=== PATIENT | male | born 1990 | race Caucasian/White ===

== ENCOUNTER → 2022-06-21 10:50 | Outpatient (BNVA) | payer OTHER, SELFPAY | PROVIDERS: PCP Nurse Practitioner Family; Visit Provider Internal Medicine Endocrinology, Diabetes & Metabolism | DX: E10.9 Type 1 diabetes mellitus without complications (principal); Z79.4 Long term (current) use of insulin | CPT/HCPCS: 82947 ==

== ENCOUNTER 2022-07-07 07:59 | Outpatient (REF) | payer OTHER, SELFPAY ==
[2022-07-07 11:41] LABS: Hematocrit 43.4 % (42.0-52.0); Hemoglobin 14.6 g/dl (14.0-18.0); Mean Corpuscular HGB Conc 33.6 g/dl (31.0-36.0); Mean Corpuscular Volume 89.1 fL (80.0-98.0); Mean Platelet Volume 10.2 fL (9.4-12.4); Platelet Count 322 X10*3/uL (160-400); Red Blood Count 4.87 X10*6/uL (4.60-5.80); White Blood Count 7.5 X10*3/uL (4.8-10.8)
[2022-07-07 11:56] LABS: Alanine Aminotransferase 17 U/L (0-40); Albumin Level 4.2 g/dL (3.5-5.0); Alkaline Phosphatase 46 U/L (39-117); Anion Gap 10 (12-20); Aspartate Amino Transferase 18 U/L (5-37); Bilirubin Total 0.7 mg/dL (0.0-1.0); Blood Urea Nitrogen 14 mg/dL (9-16); Carbon Dioxide 29 mmol/L (22-29); Chloride 105 mmol/L (96-108); Cholesterol 164 mg/dL; Estimated Glomerular Filt Rate > 60; Glucose Fasting 121 mg/dL (60-99); Glucose Random 121 mg/dL (60-115); HDL Cholesterol 43 mg/dL; LDL Cholesterol Calculated 112 mg/dl; Potassium 4.1 mmol/L (3.3-5.1); Sodium 140 mmol/L (135-145); Total Protein 6.9 g/dL (6.5-8.0); Triglycerides 45 mg/dL
[2022-07-07 12:13] LABS: TSH reflex Free T4 2.26 uIU/mL (0.32-4.0)
[2022-07-07 12:55] LABS: Microalbum/Creatinine Ratio Ur 5.8 ug/mg cr
== END 2022-07-07 08:00 | disposition home or self-care (01) ==
LOC: HO.WFDLDS 07:59
PROVIDERS: Internal Medicine Endocrinology, Diabetes & Metabolism; Visit Provider Nurse Practitioner Family
DX: Z00.00 Encounter for general adult medical examination without abnormal findings (principal); E10.9 Type 1 diabetes mellitus without complications
CPT/HCPCS: 36415; 80048; 80053; 80061; 82043; 84443; 85027

== ENCOUNTER → 2022-09-20 12:25 | Outpatient (BNVA) | payer OTHER, SELFPAY | PROVIDERS: PCP Nurse Practitioner Family; Visit Provider Internal Medicine Endocrinology, Diabetes & Metabolism | DX: E10.319 Type 1 diabetes mellitus with unspecified diabetic retinopathy without macular edema (principal); Z79.4 Long term (current) use of insulin | CPT/HCPCS: 82947; 83036 ==

== ENCOUNTER → 2022-11-01 07:54 | Outpatient (BNVA) | payer OTHER, SELFPAY | PROVIDERS: PCP Nurse Practitioner Family; Visit Provider Registered Nurse Diabetes Educator ==

== ENCOUNTER → 2022-12-06 08:34 | Outpatient (BNVA) | payer OTHER, SELFPAY | PROVIDERS: PCP Nurse Practitioner Family; Visit Provider Registered Nurse Diabetes Educator ==

== ENCOUNTER 2023-01-10 08:05 | Outpatient (AMB) | payer OTHER, SELFPAY ==
[2023-01-10 08:08] VITALS: BP 126/80; PULSE 83
--- NOTE | 2023-01-10 08:08 | MHC.OFFVIS ---
Intake Vital Signs 01/10/23 08:08 Height 61 ft Weight 180 lb 8.937 oz BMI 0.2 BP 126/80 Blood Pressure Location Lt brachial Position Sitting Pulse 83 Pulse Source Pulse Oximeter Intake Visit Reasons: DM Intake Note: Patient present today to follow up on Type 1 Diabetes Mellitus. Patient receives DME supplies through: Pharmacy Last Diabetic Eye exam: 11/2022 Last Podiatry Visit: Does not see Drain Technician Random Glucose: 173 mg/dl HgA1C: 7.8% Brand Sales Consultant Required: No Accompanied by: Self / Same As Patient Allergies amoxicillin Allergy (Mild, Verified 01/10/23 08:13) Hives penicillin V Allergy (Mild, Verified 01/10/23 08:13) Hives Medication List - Last Reconciled 01/10/23 by Dereje Martinez MD blood-glucose sensor (Dexcom G7 Sensor device) As directed change every 10 days insulin glargine (Basaglar KwikPen U-100 Insulin) 36 units subcut QPM insulin lispro (Humalog KwikPen (U-100) Insulin) 1 sliding scale dose subcut USEASDIRECTD HPI HPI Comments History of Present Illness Details 32 YO M with is seen in consultation for T1DM at the request of PCP. Initially diagnosed with T1DM in age 14 when presented with 2 wks of polyuria and polydypsia .Saw Dr. Shaffer and Dr. Carolina Was initially started on treatment with Current regimen: Basaglar 36 units Humalog 1:10 Currently on a Dexcom. Was on pump Medtronic for 2 yrs Dexcom shows Avg glucose is 202 with SD of 75 and GMI of 8.1 . The patient's blood sugars were in target 40% of the time, above target 58 % of the time, and below target 2% of the time. Pattern shows post-dinner elevations and post-breakfast hypoglycemia Reports low sugars 3-5 X wk . Treats lows with eating fruit snacks . Checks sugar after to ensure it is rising. Does not check again No Family history of autoimmunity Has eyes checked yearly, last eye exam 1 mo ago , has retinopathy. [Denies] neuropathy, last foot exam Not , sees podiatry. Denies nephropathy, Not on SASHA/ARB. Not Has HLD, Not on statin. Denies history of CAD. [Had] diabetes education. Diet/Carb counting: Y Denies prior episodes of DKA. Denies prior severe episodes of hypoglycemia requiring help or hospitalization. Labs: [facility] Surgical History History of surgery on arm Family History Mother Migraine headache Father Acute alcohol abuse Social History Housing: House Alcohol intake: current Alcohol intake frequency: a few times a week Patient Tobacco Use Status: Never used Tobacco e-Cigarette/Vaping Use: Never Used Current occupational status: employed Current occupation: [employer] Cognitive needs: No Hearing needs: No Vision needs: No Physical Exam Vital Signs: Last Vital Signs Pulse 83 01/10/23 08:08 BP 126/80 01/10/23 08:08 BMI result Body Mass Index 0.2 Absence of Cushingoid features. Absence of acromegalic features. Neck exam reveals nl size thyroid about 15 gms. No thyroid nodules palpable. No carotid bruits present. Lungs CTA. Heart S1 S2, Reg R/R. No M/R/ G. Skin exam reveals absence of vitiligo or acanthosis nigricans. Abdominal exam reveals Soft NT/ND with NA BS. No organomegaly present. Extrem Other: Visual exam of foot performed. No ulcerations or open lesions. No onchomycosis, no callouses.Pulses 2 + distally. Sensation intact to monofilament exam. Vibratory sensation sensed 10 seconds in right, 10 seconds in left with 128 Hz tuning fork Results AMB Hemoglobin A1c AMB Hemoglobin A1c 7.8 % Last Edit by Holli Betancur on 01/10/23 08:30 Results Reviewed Results Reviewed: 01/10/23 08:20 Glucose, Whole Blood Routine Laboratory Last Values Glucose (Clinic) 173 mg/dL (60-115) H 01/10/23 08:20 Assessment & Plan Assessment & Plan (1) Type 1 diabetes mellitus: Code(s): E10.9 - Type 1 diabetes mellitus without complications Plan: This is a 31-year-old white male with a history of type 1 diabetes being treated with basal-bolus insulin with glycemic control and no known microvascular or macrovascular complications. Plan is to increase Carbohydrate to 1:8 before dinner and decrease to 1:11 before breakfast Will also talk about using insulin pump like tandem or Omnipod patient is interested. Also went over the correlation between poor glycemic control and development and progression of complication. Orders: Orders AMB Hemoglobin A1c Today E10.9 - Type 1 diabetes mellitus without complications Coding Level of Care Code Est Pt Level 4 (49984) Diagnoses Type 1 diabetes mellitus E10.9
[2023-01-10 08:24] LABS: Glucose, Whole Blood 173 mg/dL (60-115)
== END 2023-01-10 08:47 | disposition home or self-care (01) ==
PROVIDERS: PCP Nurse Practitioner Family; Referring Provider Nurse Practitioner Family; Visit Provider Internal Medicine Endocrinology, Diabetes & Metabolism
DX: E10.9 Type 1 diabetes mellitus without complications (principal)
CPT/HCPCS: 99214

== ENCOUNTER → 2023-01-10 08:05 | Outpatient (BNVA) | payer OTHER, SELFPAY | PROVIDERS: Visit Provider Internal Medicine Endocrinology, Diabetes & Metabolism | DX: E10.9 Type 1 diabetes mellitus without complications (principal) | CPT/HCPCS: 82947; 83036 ==

== ENCOUNTER 2023-01-24 09:01 | Outpatient (AMB) | payer OTHER, SELFPAY ==
--- NOTE | 2023-01-24 09:37 | A.OFFVIS_ITS ---
Intake Intake Visit Reasons: Pump discussion, voicemail Project Estimator Required: No Accompanied by: Self / Same As Patient Allergies amoxicillin Allergy (Mild, Verified 01/10/23 08:13) Hives penicillin V Allergy (Mild, Verified 01/10/23 08:13) Hives HPI Comprehensive Diabetes Asmnt Most Recent Diabetes Results: Microalb/Creat Ratio 5.8 ug/mg cr 07/07/22 Cholesterol 164 mg/dL 07/07/22 HDL Cholesterol 43 mg/dL 07/07/22 Triglycerides 45 mg/dL 07/07/22 Creatinine 0.78 mg/dL (0.5-1.4) 07/07/22 Blood Urea Nitrogen 14 mg/dL (9-16) 07/07/22 Sodium 140 mmol/L (135-145) 07/07/22 Potassium 4.1 mmol/L (3.3-5.1) 07/07/22 Chloride 105 mmol/L (96-108) 07/07/22 Carbon Dioxide 29 mmol/L (22-29) 07/07/22 Calcium 9.0 mg/dL (8.4-10.2) 07/07/22 AST 18 U/L (5-37) 07/07/22 ALT 17 U/L (0-40) 07/07/22 Total Protein 6.9 g/dL (6.5-8.0) 07/07/22 Albumin 4.2 g/dL (3.5-5.0) 07/07/22 PFSH Surgical History History of surgery on arm Family History Mother Migraine headache Father Acute alcohol abuse Social History Housing: House Alcohol intake: current Alcohol intake frequency: a few times a week Patient Tobacco Use Status: Never used Tobacco e-Cigarette/Vaping Use: Never Used Current occupational status: employed 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 Cognitive needs: No Hearing needs: No Vision needs: No Assessment & Plan Assessment & Plan (1) Type 1 diabetes mellitus: Code(s): E10.9 - Type 1 diabetes mellitus without complications Plan: Pump Assessment: Type of DM: type 1 Dx at age: 14 y.o. Previous DKA: no Current Insulin Rx: MDI Patient takes insulin as prescribed: yes Patient? checks BG with Dexcom g7 Downloaded meter today yes Patient? reports glycemic control as: fair Most recent Hgb A1C: 7.8% Frequency of low BG: every few days Frequency of high BG: daily Has pt been on a pump in the past? yes Medtronic Reviewed insulin pump basics today with Patient. Explained pros and cons of insulin pumps. Showed pt various pumps, infusion sets, and cgms currently available. Reviewed need to wear pump 24/ and need to change infusion set every 3 days. Also stressed importance of frequent BG checks, 4x daily minimum or use pump that is integrated with CGM.? Patient demonstrated motivation for continued insulin pump education and understands the need to complete education prior to starting insulin pump for best outcome. Patient consistently uses insulin to carb ratio and correction factor to determine bolus insulin Explained to patient at this time integrated pumps are only integrated with Dexcom G6 Patient is interested in Omnipod 5, however had negative reaction to Dexcom G6 adhesive. So he is not sure he wants to pursue pump therapy at this time. Patient given list of barrier creams that he can experiment with with Dexcom G6 sensor to see this helps with sensitivity. Patient is also having hyperglycemia overnight due to his concern of hypoglycemia if he goes to bed with his glucose under 200 mg/dL. Recommended to patient at this time to reduce his Lantus dose to 28 units. If he wakes up approximately in the same range then we can visit revisit insulin to carb ratio and correction factor for correcting hyperglycemia during the day Patient will follow-up with natural resources extension educator in 1 month Patient Instructions: Reduce Lantus from 36 units to 28 units. Follow-up with natural resources extension educator in 1 month Coding Level of Care Code Est Pt Level 1 (09348) Diagnoses Type 1 diabetes mellitus E10.9
== END 2023-01-24 09:39 | disposition home or self-care (01) ==
PROVIDERS: PCP Nurse Practitioner Family; Visit Provider Registered Nurse Diabetes Educator
DX: E10.9 Type 1 diabetes mellitus without complications (principal)

== ENCOUNTER → 2023-01-24 09:01 | Outpatient (BNVA) | payer OTHER, SELFPAY | PROVIDERS: PCP Nurse Practitioner Family; Visit Provider Registered Nurse Diabetes Educator | DX: E10.9 Type 1 diabetes mellitus without complications (principal) | CPT/HCPCS: 99211 ==

== ENCOUNTER 2023-06-27 11:50 | Outpatient (AMB) | payer OTHER, SELFPAY ==
[2023-06-27 11:58] VITALS: BP 120/76; PULSE 85; RESP 14; TEMP 36.6; O2SAT 99; BMI 24.2
--- NOTE | 2023-06-27 11:58 | MHC.OFFWIV ---
Intake Vital Signs 06/27/23 11:58 Height 6 ft 1 in Weight 183 lb 8 oz BMI 24.2 BP 120/76 Blood Pressure Location Rt brachial Position Sitting Respiration 14 Pulse 85 Pulse Source Pulse Oximeter Temp 97.9 F Temp Source Temporal Artery Scan Pulse Oximetry (%) 99 Oxygen Delivery Method Room Air Intake Visit Reasons: Shoulder pain Intake Note: Patient states that whenever he pulls arm back to like put on a coat it feels like pressure and like someone is squeezing his shoulder really tight. Patient has missed work due to him not being able to sleep. 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 Required: No Accompanied by: Self / Same As Patient Allergies amoxicillin Allergy (Mild, Verified 06/27/23 12:59) Hives penicillin V Allergy (Mild, Verified 06/27/23 12:59) Hives Medication List - Last Reconciled 06/27/23 by KEV GeronimoP- blood-glucose sensor (Dexcom G7 Sensor device) DIRECTED CHANGE EVERY 10 DAYS insulin glargine (Basaglar KwikPen U-100 Insulin) 36 units subcut QPM insulin lispro (Humalog KwikPen (U-100) Insulin) 1 unit for every 10 grams of carbohydrates subcutaneously 3 times a d subcutaneously 3 times a day; Do you need a note to return to daycare/school/sports/work: Yes Return to daycare/school/sports/work/other note: work HPI HPI Comments History of Present Illness Details Here today with complaints of right shoulder pain that started about 1 month ago. Reports he does not have any overt trauma or injury to the shoulder. He does have uncontrolled diabetes type 1. Reports his last A1c is greater than 9%. He correlates the pain in his right shoulder with playing his guitar. 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 About a month ago he started playing again. It was after this time that he noticed the pain located in the front of the right shoulder as well as the posterior right shoulder. He figured it would go away with time. However it has not. To treat at home he has been doing home exercises which he notes has been helpful. Denies any history of surgery or imaging to this joint in the past Of note he needs a new endocrinology referral requested referral to [facility]. He also needs [facility] paperwork to be completed for his intermittent absence related to his chronic condition of diabetes. [facility] Surgical History History of surgery on arm Family History Mother Migraine headache Father Acute alcohol abuse Social History Housing: House Alcohol intake: current Alcohol intake frequency: a few times a week Patient Tobacco Use Status: Never used Tobacco e-Cigarette/Vaping Use: Never Used Current occupational status: employed Current occupation: [employer] Cognitive needs: No Hearing needs: No Vision needs: No Physical Exam Vital Signs: Last Vital Signs Temp 97.9 F 06/27/23 11:58 Pulse 85 06/27/23 11:58 Resp 14 06/27/23 11:58 BP 120/76 06/27/23 11:58 Pulse Ox 99 06/27/23 11:58 Oxygen Delivery Method Room Air 06/27/23 11:58 BMI result Body Mass Index 24.2 Extrem Right upper extremity: normal to inspection, normal capillary refill, no joint enlargement and shoulder/upper arm Details: tenderness, axillary nerve sensory function normal and abnormal ROM Details: pain with active ROM Details: in ADduction, in ABduction, in extension, in flexion, in internal rotation and external rotation- Shoulder/upper arm images: 1. pain w palpation 2. 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 Prescription for meloxicam to be used as needed to help with his pain and discomfort. If this is not effective consider an orthopedic referral. (2) Type 1 diabetes mellitus: Code(s): E10.9 - Type 1 diabetes mellitus without complications Plan: Per his request new referral to endocrinology at we did consult placed today. I did advise him to make a follow-up in about a week or so to complete the [facility] paperwork with his primary care provider. Plan This note is constructed using voice recognition software. While every effort has been made to ensure accuracy in supervisor packing, still errors may have been included Sometimes, these errors may affect the content or meaning of the given sentence . Total time spent caring for the patient today was 30 minutes. This includes time spent before the visit reviewing the chart, time spent during the visit, and time spent after the visit on documentation Orders: Orders PT Evaluation and Treatment Today E10.618 - Type 1 diabetes mellitus with other diabetic arthropathy, M75.01 - Adhesive capsulitis of right shoulder Referrals Endocrinology Referral E10.9 - Type 1 diabetes mellitus without complications Medications: New meloxicam 7.5 mg PO DAILY 14 tabs 0RF Coding Level of Care Code Est Pt Level 4 (50039) Diagnoses Adhesive capsulitis of right shoulder associated with type 1 diabetes mellitus E10.618; M75.01 Type 1 diabetes mellitus E10.9
== END 2023-06-27 13:20 | disposition home or self-care (01) ==
PROVIDERS: PCP Nurse Practitioner Family; Visit Provider Nurse Practitioner Family
DX: E10.618 Type 1 diabetes mellitus with other diabetic arthropathy (principal); M75.01 Adhesive capsulitis of right shoulder; E10.9 Type 1 diabetes mellitus without complications
CPT/HCPCS: 99214

== ENCOUNTER 2023-07-11 10:26 | Outpatient (AMB) | payer OTHER, SELFPAY ==
[2023-07-11 10:42] VITALS: BP 120/74; PULSE 102; RESP 13; TEMP 36.6; O2SAT 99; BMI 24.3
--- NOTE | 2023-07-11 10:42 | A.OFFPC_ITS ---
Vital Signs 07/11/23 10:42 Height 6 ft 1 in Weight 184 lb 4 oz BMI 24.3 BP 120/74 Blood Pressure Location Rt brachial Position Sitting Respiration 13 Pulse 102 H Pulse Source Pulse Oximeter Temp 98 F Temp Source Temporal Artery Scan Pulse Oximetry (%) 99 Oxygen Delivery Method Room Air Intake Visit Reasons: [facility] paperwork SHANAE from [facility] [employer] Required: No Accompanied by: Self / Same As Patient Allergies amoxicillin Allergy (Mild, Verified 07/11/23 10:46) Hives penicillin V Allergy (Mild, Verified 07/11/23 10:46) Hives Tobacco use date assessed: 07/11/23 Dental Screening Dental Screen Date: 07/11/23 Did you have a dental visit in the last 12 months?: Yes Did you have a dental problem in the last 6 months where you did not have access to dental care?: No Was dental information given to patient?: Patient has dentist HPI HPI Comments History of Present Illness Details 32 y/o M with IDDM with complications, m ild nonproliferative diabetic retinopathy, MDD,[facility] 04/2021, reports he has annual visits. Asked him to get me these reports. 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 blood sugar log reviewed with him today. The 30 day average is 202 mg/dL. 42% in range, less than 1% low, 2% very high, 35% high. He reports he has more highs in the evening and overnight. He is currently taking his Basaglar 36 units at bedtime. And using preprandial insulin and insulin sliding scale. Admits that his diet is part of the problem. It is interested in a diabetic nut ritionist. Referral is placed today. [facility] Medical History No pertinent past medical history Surgical History History of surgery on arm Family History Mother Migraine headache Father Acute alcohol abuse Other Mental health disorder Substance abuse Social History Housing: House Alcohol intake: current Alcohol intake frequency: a few times a week Patient Tobacco Use Status: Never used Tobacco e-Cigarette/Vaping Use: Never Used service: No Current occupational status: employed Current occupation: [employer] Cognitive needs: Yes Hearing needs: No Vision needs: No Questionnaire PHQ-9 Over the last 2 weeks, how often have you been bothered by any of the following problems? 1. Little interest or pleasure in doing things: several days 2. Feeling down, depressed, or hopeless: several days 3. Trouble falling or staying asleep, or sleeping too much: nearly every day 4. Feeling tired or having little energy: more than half the days 5. Poor appetite or overeating: not at all 6. Feeling bad about yourself - or that you are a failure or have let yourself or your family down: not at all 7. Trouble concentrating on things, such as reading the newspaper or watching television: several days 8. Moving or speaking so slowly that other people could have noticed. Or the opposite - being so fidgety or restless that you have been moving around a lot more than usual: more than half the days 9. Thoughts that you would be better off or of hurting yourself in some wa y: not at all Total score: 10 Depression Screening Interpretation: Positive Depression Screening Follow-up: Follow-up Visit Requested Depression Screening Done: Yes 46603 - PHQ-9 Billing: Yes Source: Developed by Drs. Dereje Carolina, Clarice Weber, Maicol To and colleagues, with an educational karolyn from [employer]. Thrive Questionnaire Date Thrive assessed: 07/11/23 I am a: Patient What is your living situation today?: I have a steady place to live Within the past 12 months, did the food you bought not last and you didn't have the money to get more?: Never true Within the past 12 months, did you worry whether your food would run out before you got money to buy more?: Never true Do you have trouble paying for medicines?: No Do you have trouble getting transportation to medical appointments?: No Do you have trouble paying your heating and electricity bill?: No Do you have trouble taking care of your child, family member or friend?: No Do you have trouble with day-to-day activities such as bathing, preparing meals, shopping, managing finances, etc.?: No Are you currently unemployed and looking for a job?: No Are you interested in more education?: Yes Please select the resources that you would like help with: Education Currently or been in a relationship where the following occur: no concerns reported THRIVE Score: 0 AUDIT C Alcohol Use Questionnaire (AUDIT-C) 1. How often do you have a drink containing alcohol?: 2-3 times a week 2. How many drinks containing alcohol do you have on a typical day when you are drinking?: 1 or 2 3. How often do you have six or more drinks on one occasion?: Never Total Score: 3 OLIVER-7 AMB Questionnaire OLIVER-7 Date OLIVER - 7 assessed: 07/11/23 Feeling nervous, anxious, or on edge: 1 = Several days Not being able to stop or control worryin = Several days Worrying too much about different things: 1 = Several days Trouble relaxin = Nearly every day Being so restless that it is hard to sit still: 3 = Nearly every day Becoming easily annoyed or irritable: 2 = More than half the days Feeling afraid as if something awful might happen: 0 = Not at all Total OLIVER-7 score (0-4 normal; 5-9 mild; 10-14 moderate; 15-21 severe): 11 Source: Developed by Drs. Dereje Carolina, Clarice Weber, Maicol To and colleagues, with an educational karolyn from [employer]. OLIVER-7 Assessment Billing OLIVER-7 Assessment Tool: OLIVER-7 Assessment 56274 Review of Systems Const All systems reviewed & are unremarkable except as noted in HPI and below Physical exam (Primary Care) Vital Signs: Last Vital Signs Temp 98 F 07/11/23 10:42 Pulse 102 H 07/11/23 10:42 Resp 13 07/11/23 10:42 BP 120/74 07/11/23 10:42 Pulse Ox 99 07/11/23 10:42 Oxygen Delivery Method Room Air 07/11/23 10:42 BMI result Body Mass Index 24.3 Tobacco/Smoking Status: Tobacco use Status Tobacco use date assessed 07/11/23 07/11/23 10:52 Patient Tobacco Use Status Never used Tobacco 07/11/23 10:52 e-Cigarette/Vaping Use Never Used 07/11/23 10:52 PHQ-9: PHQ-9 Score PHQ-9: Total score 10 07/11/23 10:57 Depression Screening Interpretation: Positive Depression Screening Follow-up: Follow-up Visit Requested Thrive Assessment: Date of Thrive Assessment Date Thrive assessed 07/11/23 07/11/23 10:52 Currently or been in a relationship where the following occur: no concerns reported Const Other: AWAKE ALERT ORIENTED MUCOUS MEMBRANES MOIST SPEAKING IN FULL SENTENCES MOOD AND AFFECT APPROPRIATE Assessment and Plan Assessment & Plan (1) Type 1 diabetes mellitus: Comment: CURRENTLY USING INSULIN BASAGLAR 36 UNITS AT BEDTIME. ADVISED TO INCREASE THIS TO 40 UNITS DAILY. HE CAN TAKE THIS AT BEDTIME OR HE CAN SPLIT THIS 20 UNITS IN THE MORNING AND 20 UNITS AT BEDTIME THIS IS UP TO HIM. REPORTS THAT HE IS DONE THIS IN THE PAST AND IS UNSURE WHY HE STOPPED DOING THIS. HE SHOULD CONTINUE TO USE HIS CGM WELL HIS INSULIN LISPRO SLIDING SCALE. SCHEDULE AN APPOINTMENT WITH ENDOCRINOLOGY. DIABETIC ENTERTAINER & COMIC REFERRAL PLACED TODAY. ENCOURAGED TO STAY UP-TO-DATE ON EYE EXAMS AND GET ME THESE RECORDS. [facility] PAPERWORK COMPLETED FOR HIM TODAY AND RETURNED TO HIM AT THE TIME OF THE VISIT Code(s): E10.9 - Type 1 diabetes mellitus without complications Qualifiers: Diabetes mellitus complication status: with ophthalmic complications Diabetes mellitus complication detail: with diabetic retinopathy Diabetic retinopathy severity: with mild nonproliferative retinopathy Diabetes mellitus macular edema: without macular edema Laterality: bilateral Qualified Code(s): E10.3293 - Type 1 diabetes mellitus with mild nonproliferative diabetic retinopathy without macular edema, bilateral Plan THIS NOTE IS CONSTRUCTED USING VOICE RECOGNITION SOFTWARE. WHILE EVERY EFFORT HAS BEEN MADE TO ENSURE ACCURACY IN RADIOTELEGRAPH OPERATOR SERVICER, STILL ERRORS MAY HAVE BEEN INCLUDED SOMETIMES, THESE ERRORS MAY AFFECT THE CONTENT OR MEANING OF THE GIVEN SENTENCE . TOTAL TIME SPENT CARING FOR THE PATIENT TODAY WAS 45 MINUTES. 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 Baseball Coach Nutrition Referral E10.9 - Type 1 diabetes mellitus without complications Patient Instructions: RETURN TO THE OFFICE IN NOVEMBER TO RECERTIFY YOUR FAMILY MEDICAL LEAVE PAPERWORK WHICH EXPIRES IN DECEMBER 2023 SOONER NEEDED Coding Level of Care Code Est Pt Level 5 (25520) Diagnoses Type 1 diabetes mellitus with mild nonproliferative retinopathy of both eyes wit hout macular edema E10.3293 Diabetes mellitus complication status: with ophthalmic complications Diabetes mellitus complication detail: with diabetic retinopathy Diabetic retinopathy severity: with mild nonproliferative retinopathy Diabetes mellitus macular edema: without macular edema Laterality: bilateral Additional Codes OLIVER-7 Assessment Billing - OLIVER-7 Assessment Tool: OLIVER-7 Assessment 74162 ([id number])
== END 2023-07-11 11:34 | disposition home or self-care (01) ==
PROVIDERS: PCP Nurse Practitioner Family; Visit Provider Nurse Practitioner Family
DX: E10.3293 Type 1 diabetes mellitus with mild nonproliferative diabetic retinopathy without macular edema, bilateral (principal)
CPT/HCPCS: 99215

== ENCOUNTER 2023-09-04 10:25 | Outpatient (AMB) | payer OTHER, SELFPAY ==
[2023-09-04 10:29] VITALS: BMI 24.5
--- NOTE | 2023-09-04 10:29 | A.OFFVIS_ITS ---
Intake VS Expanded 09/04/23 10:29 09/06/23 09:52 Height 6 ft 1 in 6 ft 1 in Weight 185 lb 10.067 oz 186 lb BMI 24.5 24.5 Intake Visit Reasons: T1DM Allergies amoxicillin Allergy (Mild, Verified 07/11/23 10:46) Hives penicillin V Allergy (Mild, Verified 07/11/23 10:46) Hives HPI Nutrition Presentation Details Pt presents for MNT for T1DM. Pt was referred by Steph Sotomayor, PCP Pt reports having a variety of foods Pt reports counting carbs other times doing best estimation. Pt reports having elevated blood glucose after dinner and then developing hypoglycemia at midnight. He reports not yet making adjustments to background insulin as recommended by PCP (to take basaglar 20 units in AM and 20 units in PM) Pt reports having an baqsimi , needs new rx. Tel encounter sent to Dr. Martinez. Pt reports contemplating insulin pump therapy Today we will discuss relationship to food/carbs/fats and fiber to blood glucose level and consistency in carbohydrate counting AZI-Ogkmchm-Ta.Jeor Equation Height 6 ft 1 in Weight 186 lb Resting Metabolic Rate 1844.35 Calculated Activity Level Moderate Activity Calories Needed to Maintain Weight 2858.74 Most Recent Diabetes Results: No Data to Display [facility] Medical History No pertinent past medical history Surgical History History of surgery on arm Family History Mother Migraine headache Father Acute alcohol abuse Other Mental health disorder Substance abuse Social History Housing: House Alcohol intake: current Alcohol intake frequency: a few times a week Patient Tobacco Use Status: Never used Tobacco e-Cigarette/Vaping Use: Never Used service: No Current occupational status: employed 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 [employer] Cognitive needs: Yes Hearing needs: No Vision needs: No Assessment & Plan Assessment & Plan (1) Type 1 diabetes mellitus: Code(s): E10.9 - Type 1 diabetes mellitus without complications Qualifiers: Diabetes mellitus complication status: with ophthalmic complications Diabetes mellitus complication detail: with diabetic retinopathy Diabetic retinopathy severity: with mild nonproliferative retinopathy Diabetes mellitus macular edema: without macular edema Laterality: bilateral Qualified Code(s): E10.3293 - Type 1 diabetes mellitus with mild nonproliferative diabetic retinopathy without macular edema, bilateral Plan: Wt: 85 Kg ( 08/2023 ) Est kcal needs as per MSJ: 2900 (40% carb, 30% protein/fat) Est fluid needs as per 25-30 ml/d: 2600 Est prot per day as per 1 g/kg bw: 85 Recommend fiber intake : 8-10 g per day and gradually increase to 25-28 g per day for women and 35-38 g for men or as tolerated Recommend sodium intake per day : less than 2000 mg Educated patient on: ( R = reviewed V = verbalizes understanding N/R = needs review N/A = not applicable * Food sources of carbohydrate, adequate serving sizes and its role in various health conditions: R V * Relationship of fats and blood glucose level: R * Differences between complex carbohydrates a simple carbohydrates, role of fiber in diet: N/R * Lean protein sources of foods: R * Differences between types of fats and role in diet (mono on saturated fat fatty acids, saturated fatty acids, trans fats): N/R * Food sources of sodium in salt and healthy modifications for heart health in kidney health: NR * Vitamins and minerals: N/R * Healthy plate method concept: R * Physical activity: Benefits a precaution: R * Hypoglycemia protocol (rule of 15): R * Dietary prevention of Hyperglycemia: R Patient Instructions: Be consistent in amount of carbohydrates consumed, work in better carb counting estimation by measuring food portion sizes. 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
[2023-09-06 09:52] VITALS: BMI 24.5
== END 2023-09-04 11:09 | disposition home or self-care (01) ==
PROVIDERS: PCP Nurse Practitioner Family; Visit Provider Dietitian, Registered
DX: E10.3293 Type 1 diabetes mellitus with mild nonproliferative diabetic retinopathy without macular edema, bilateral (principal)

== ENCOUNTER → 2023-09-04 10:25 | Outpatient (BNVA) | payer OTHER, SELFPAY | PROVIDERS: PCP Nurse Practitioner Family; Visit Provider Dietitian, Registered | DX: E10.3293 Type 1 diabetes mellitus with mild nonproliferative diabetic retinopathy without macular edema, bilateral (principal); Z71.3 Dietary counseling and surveillance | CPT/HCPCS: 97802 ==

== ENCOUNTER 2023-10-17 09:03 | Outpatient (AMB) | payer OTHER, SELFPAY ==
[2023-10-17 09:06] VITALS: BMI 24.2
--- NOTE | 2023-10-17 09:06 | A.OFFVIS_ITS ---
VS Expanded 10/17/23 09:06 Height 6 ft 1 in Weight 183 lb 6.793 oz BMI 24.2 Intake Visit Reasons: Type 1 DM Allergies amoxicillin Allergy (Mild, Verified 07/11/23 10:46) Hives penicillin V Allergy (Mild, Verified 07/11/23 10:46) Hives Nutrition Presentation Details: Pt presents for MNT f/u for T1DM Pt reports doing well, working on meal planning. 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 Most Recent Diabetes Results: No Data to Display PFSH Medical History No pertinent past medical history Surgical History History of surgery on arm Family History Mother Migraine headache Father Acute alcohol abuse Other Mental health disorder Substance abuse Social History Housing: House Alcohol intake: current Alcohol intake frequency: a few times a week Patient Tobacco Use Status: Never used Tobacco e-Cigarette/Vaping Use: Never Used service: No Current occupational status: employed 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 [employer] Cognitive needs: Yes Hearing needs: No Vision needs: No Assessment & Plan Assessment & Plan (1) Type 1 diabetes mellitus: Code(s): E10.9 - Type 1 diabetes mellitus without complications Category: Medical Qualifiers: Diabetes mellitus complication status: with ophthalmic complications Diabetes mellitus complication detail: with diabetic retinopathy Diabetic retinopathy severity: with mild nonproliferative retinopathy Diabetes mellitus macular edema: without macular edema Laterality: bilateral Qualified Code(s): E10.3293 - Type 1 diabetes mellitus with mild nonproliferative diabetic retinopathy without macular edema, bilateral Plan: Wt: 85 Kg ( 08/2023 ) Est kcal needs as per MSJ: 2900 (40% carb, 30% protein/fat) Est fluid needs as per 25-30 ml/d: 2600 Est prot per day as per 1 g/kg bw: 85 Recommend fiber intake : 8-10 g per day and gradually increase to 25-28 g per day for women and 35-38 g for men or as tolerated Recommend sodium intake per day : less than 2000 mg Educated patient on: ( R = reviewed V = verbalizes understanding N/R = needs review N/A = not applicable * Food sources of carbohydrate, adequate serving sizes and its role in various health conditions: R V * Relationship of fats and blood glucose level: R * Differences between complex carbohydrates a simple carbohydrates, role of fiber in diet: N/R * Lean protein sources of foods: R * Differences between types of fats and role in diet (mono on saturated fat fatty acids, saturated fatty acids, trans fats): N/R * Food sources of sodium in salt and healthy modifications for heart health in kidney health: NR * Vitamins and minerals: N/R * Healthy plate method concept: R * Physical activity: Benefits a precaution: R * Hypoglycemia protocol (rule of 15): R * Dietary prevention of Hyperglycemia: R Patient Instructions: Follow healthy plate method Caution with higher fat foods, choose less frequent (pastries/chips/fried foods and similar), opt for baked instead. Coding Level of Care Code Nutr Indiv Subseq (85111) Diagnoses 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 E10.3293 Diabetes mellitus complication status: with ophthalmic complications Diabetes mellitus complication detail: with diabetic retinopathy Diabetic retinopathy severity: with mild nonproliferative retinopathy Diabetes mellitus macular edema: without macular edema Laterality: bilateral
== END 2023-10-17 10:46 | disposition home or self-care (01) ==
PROVIDERS: PCP Nurse Practitioner Family; Visit Provider Dietitian, Registered
DX: E10.3293 Type 1 diabetes mellitus with mild nonproliferative diabetic retinopathy without macular edema, bilateral (principal)

== ENCOUNTER → 2023-10-17 09:03 | Outpatient (BNVA) | payer OTHER, SELFPAY | PROVIDERS: PCP Nurse Practitioner Family; Visit Provider Dietitian, Registered | DX: E10.3293 Type 1 diabetes mellitus with mild nonproliferative diabetic retinopathy without macular edema, bilateral (principal); Z71.3 Dietary counseling and surveillance | CPT/HCPCS: 97803 ==

== ENCOUNTER 2023-11-07 10:27 | Outpatient (AMB) | payer OTHER, SELFPAY ==
--- NOTE | 2023-11-07 10:59 | MHC.PC.OV ---
Vital Signs 11/07/23 11:00 Weight 181 lb 6 oz BP 128/82 Blood Pressure Location Lt brachial Position Sitting Respiration 16 Pulse 85 Pulse Source Pulse Oximeter Temp 97.9 F Temp Source Oral Pulse Oximetry (%) 98 Oxygen Delivery Method Room Air Intake Visit Reasons: FMLA recert due 12/06/23 DM1 Intake Note: patient here asking for a referral for acne. Allergies amoxicillin Allergy (Mild, Verified 11/07/23 11:12) Hives penicillin V Allergy (Mild, Verified 11/07/23 11:12) Hives Medication List - Last Reconciled 11/07/23 by KEV GeronimoP- blood-glucose sensor (Dexcom G7 Sensor device) DIRECTED CHANGE EVERY 10 DAYS glucagon 3 mg/actuation (Baqsimi) 3 mg intranasal ONCE insulin glargine (Basaglar KwikPen U-100 Insulin) 36 units (0.36 mL) subcut BID insulin lispro (Humalog KwikPen (U-100) Insulin) 1 unit for every 10 grams of carbohydrates subcutaneously 3 times a d subcutaneously 3 times a day; meloxicam 7.5 mg PO DAILY Tobacco use date assessed: 07/11/23 Dental Screening Dental Screen Date: 07/11/23 HPI HPI Comments History of Present Illness Details 32 y/o M with IDDM with complications, mild nonproliferative diabetic retinopathy, MDD,[facility] 04/2021, reports he has annual visits. Asked him to get me these reports. Here today for routine follow up chronic conditions. Since last office visit he has seen the diabetes senior manager mergers & acquisitions twice. He is found this to be very beneficial. He reports improvement in his blood sugars. He has a new patient appointment with endocrinology scheduled in January with Dr. Lawrence. He has a diabetic eye exam scheduled in 05/2024 @ [facility]. He reports great improvements in his labile blood sugars with splinting his Basaglar to twice a day. He is taking 20 units at bedtime and 16 units in the morning. He continues to use the Dexcom, now has the Dexcom G7. Needs refills which were sent today. The CGM was reviewed with him today. The 30 day average glucose is 162 mg/dL, 65% in range. Continues to use preprandial insulin and insulin sliding scale. Has started to work out and watch his diet. He currently has an active FMLA leave, intermittent. 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 He reports that these were flares which lasted 3 days each. He was not hospitalized. He reports that his absence was due to complications of elevated blood sugar. Should this FMLA need to be recertified past 12/06/2023, I do find this leave to be medically necessary. In other regards he wonders what he can do for his acne. Was on Accutane in the past which caused SI. He is currently using CeraVe face wash and ponds cold cream. No other topical treatments are being used. In regards to his right shoulder, has been doing posture change w/ guitar. This has helped greatly. Little shoulder pain since this. Now doing home exercise routine. With push ups has the same pain. Pain is mild. Intermittent. Would like try massage therapy at this time. Exam: Facial acne RRR LS CTAB FROM L arm/shoulder, palpable muscle tightness along scap which was reduced w external rotation of the arm and tightening of the Lat Plan Continue diabetes regimen Use [id number] proactiv acne treatment for sensitive skin Try massage therapy for your right shoulder. If this is not affected we did discuss referral to orthopedics or physical therapy. Okay to continue to use meloxicam as needed as well. 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 Dereje Carolina, Clarice Weber, Maicol To and colleagues, with an educational karolyn from [employer]. Physical exam (Primary Care) Vital Signs: Last Vital Signs Temp 97.9 F 11/07/23 11:00 Pulse 85 11/07/23 11:00 Resp 16 11/07/23 11:00 BP 128/82 11/07/23 11:00 Pulse Ox 98 11/07/23 11:00 Oxygen Delivery Method Room Air 11/07/23 11:00 Tobacco/Smoking Status: Tobacco use Status Tobacco use date assessed 07/11/23 11/07/23 11:05 Patient Tobacco Use Status Never used Tobacco 11/07/23 11:05 e-Cigarette/Vaping Use Never Used 11/07/23 11:05 Thrive Assessment: Date of Thrive Assessment Date Thrive assessed 07/11/23 11/07/23 11:05 Assessment and Plan Assessment & Plan (1) Type 1 diabetes mellitus with complication, with long-term current use of insulin: Code(s): E10.8 - Type 1 diabetes mellitus with unspecified complications (2) Acne: Code(s): L70.9 - Acne, unspecified Qualifiers: Acne type: acne vulgaris Qualified Code(s): L70.0 - Acne vulgaris (3) Right shoulder pain: Code(s): M25.511 - Pain in right shoulder Qualifiers: Chronicity: chronic Qualified Code(s): M25.511 - Pain in right shoulder; G89.29 - Other chronic pain (4) Diabetic retinopathy: Code(s): E11.319 - Type 2 diabetes mellitus with unspecified diabetic retinopathy without macular edema Qualifiers: Diabetes mellitus type: type 1 Diabetic retinopathy severity: with mild nonproliferative retinopathy Laterality: bilateral Diabetes mellitus macular edema: macular edema presence unspecified Qualified Code(s): E10.3293 - Type 1 diabetes mellitus with mild nonproliferative diabetic retinopathy without macular edema, bilateral Plan: This note is constructed using voice recognition software. While every effort has been made to ensure accuracy in chin strap cutter, still errors may have been included Sometimes, these errors may affect the content or meaning of the given sentence . Total time spent caring for the patient today was 45 minutes. This includes time spent before the visit reviewing the chart, time spent during the visit, and time spent after the visit on documentation Medications: Changed From insulin glargine (Basaglar KwikPen U-100 Insulin) 36 units (0.36 mL) subcut BID 15 mL 11RF E10.3293 - Type 1 diabetes mellitus with mild nonproliferative diabetic retinopathy without macular edema, bilateral To insulin glargine (Basaglar KwikPen U-100 Insulin) 20 units at bedtime, 16 units in the AM 36 units (0.36 mL) subcut BID 15 mL 11RF E10.3293 - Type 1 diabetes mellitus with mild nonproliferative diabetic retinopathy without macular edema, bilateral Refilled blood-glucose sensor (Dexcom G7 Sensor device) DIRECTED CHANGE EVERY 10 DAYS 3 ea 12RF blood-glucose sensor (Dexcom G7 Sensor device) DIRECTED CHANGE EVERY 10 DAYS 3 ea 12RF Patient Instructions: Proactiv try that for acne Bring me re-cert for FMLA and we can complete Try massage for shoulder If this does not work could consider Orthopedic referral or formal PT Continue Insulin split and f/u Endo as scheduled Jan 2024 and [facility] May 2024 Coding Level of Care Code Est Pt Level 5 (76077) Complex EM visit Add On G2211 Diagnoses Type 1 diabetes mellitus with complication, with long-term current use of insulin E10.8 Acne vulgaris L70.0 Acne type: acne vulgaris Chronic right shoulder pain M25.511; G89.29 Chronicity: chronic Mild nonproliferative diabetic retinopathy of both eyes associated with type 1 diabetes mellitus, macular edema presence unspecified E10.3293 Diabetes mellitus type: type 1 Diabetic retinopathy severity: with mild nonproliferative retinopathy Laterality: bilateral Diabetes mellitus macular edema: macular edema presence unspecified
[2023-11-07 11:00] VITALS: BP 128/82; PULSE 85; RESP 16; TEMP 36.6; O2SAT 98
== END 2023-11-07 11:43 | disposition home or self-care (01) ==
PROVIDERS: PCP Nurse Practitioner Family; Visit Provider Nurse Practitioner Family
DX: E10.8 Type 1 diabetes mellitus with unspecified complications (principal); E10.3293 Type 1 diabetes mellitus with mild nonproliferative diabetic retinopathy without macular edema, bilateral; L70.0 Acne vulgaris; M25.511 Pain in right shoulder; G89.29 Other chronic pain
CPT/HCPCS: 99215

== ENCOUNTER 2023-12-05 08:53 | Outpatient (AMB) | payer OTHER, SELFPAY ==
--- NOTE | 2023-12-05 08:56 | A.OFFPC_ITS ---
Vital Signs 12/05/23 09:01 Height 6 ft 1 in Weight 185 lb 8 oz BMI 24.5 BP 120/68 Blood Pressure Location Lt brachial Position Sitting Respiration 16 Pulse 102 H Pulse Source Pulse Oximeter Temp 97.9 F Temp Source Oral Pulse Oximetry (%) 98 Oxygen Delivery Method Room Air Intake Visit Reasons: for FMLA paperwork Intake Note: patient here for FMLA paperwork and talk about his sleep issues. Director Digital Marketing Required: No Allergies amoxicillin Allergy (Mild, Verified 12/05/23 11:04) Hives penicillin V Allergy (Mild, Verified 12/05/23 11:04) Hives Medication List - Last Reconciled 12/05/23 by EDDY Geronimo-NIEVES blood-glucose sensor (Dexcom G7 Sensor device) DIRECTED CHANGE EVERY 10 DAYS glucagon 3 mg/actuation (Baqsimi) 3 mg intranasal ONCE insulin glargine (Basaglar KwikPen U-100 Insulin) 36 units (0.36 mL) subcut BID insulin lispro (Humalog KwikPen (U-100) Insulin) 1 unit for every 10 grams of carbohydrates subcutaneously 3 times a d subcutaneously 3 times a day; meloxicam 7.5 mg PO DAILY Tobacco use date assessed: 12/05/23 Dental Screening Dental Screen Date: 12/05/23 Did you have a dental visit in the last 12 months?: No Did you have a dental problem in the last 6 months where you did not have access to dental care?: No Was dental information given to patient?: Patient has dentist HPI HPI Comments History of Present Illness Details 32 y/o M with IDDM with complications, m ild nonproliferative diabetic retinopathy, MDD,OLIVER Health Maintenance: DME 04/2021, reports he has annual visits. Asked him to get me these reports; has a diabetic eye exam scheduled in 05/2024 @ [facility]. Specialists: Optho Endo DM Educator Counselor Here today for routine follow up chronic conditions. No changes in his diabetes regimen or plan of care since the last office visit. > he has seen the diabetes director ambulatory twice. >new patient appointment with endocrinology scheduled in January with Dr. Lawrence. > diabetic eye exam scheduled in 05/2024 @ [facility]. > continues using CGM He currently has an active FMLA leave, intermittent. 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 Reports that he called such a himself reports that the currently is active through June of 2024. I do agree that the leave is medically substantiated and I have amended the current forms that have been completed already to include the date of June of 2024. These forms were not faxed to Darryl however scanned back into the patient's chart. Should this form need to be sent to Darryl I would be happy to do that. In regards to his acne follow up, he is on day 3 a proactive treatment. Does admit some mild burning sensation to his skin. No other side effects. For his right shoulder pain, he has found great benefit from massage. Continues to do gentle stretching as well with improvement. New complaints insomnia. Reports he is able to fall asleep fine. Unable to stay asleep. He wakes about every 2 hours, takes about an hour or so to fall back to sleep. Does report that his eyes feel dry and like they are burning at times when he wakes up. Can not attribute his waking to anything in particular. At he had thought perhaps it was his blood glucose control. But now that this is better he does not think this has anything to do with it. He also denies a need to get up to urinate during the night. He really does think that the insomnia as related to anxiety. He reports that when he wakes up he has racing thoughts, he is going over his to do list. He does admit some financial stressors. He has never been to counseling. He does not want to take medications if he does not have to. Exam: Facial acne RRR LS CTAB Pleasant and cooperative. Plan Continue diabetes regimen; FMLA recertified through June of 2024. Continue [id number] proactiv acne treatment for sensitive skin; reduce frequency of use if skin sensitivity develops. Discuss that usually the benzyl peroxide is the causative factor for irritation. Could try a product without benzyl peroxide of skin irritation develops. Continue massage therapy for your right shoulder. If this is not affected we did discuss referral to orthopedics or physical therapy. Okay to continue to use meloxicam as needed as well. Refer to counseling. If not effective can discuss starting medications. This note is constructed using voice recognition software. While every effort has been made to ensure accuracy in laminate floor installer, still errors may have been included Sometimes, these errors may affect the content or meaning of the given sentence . Total time spent caring for the patient today was 40 minutes. This includes time spent before the visit reviewing the chart, time spent during the visit, and time spent after the visit on documentation FOR[facility]LY [facility], [facility] Medical History (Updated 12/05/23 @ 11:04 by Kathy Sotomayor [facility]) Type 1 diabetes mellitus No pertinent past medical history Surgical History History of surgery on arm Family History Mother Migraine headache Father Acute alcohol abuse Other Mental health disorder Substance abuse Social History Housing: House Alcohol intake: current Alcohol intake frequency: a few times a week Patient Tobacco Use Status: Never used Tobacco e-Cigarette/Vaping Use: Never Used service: No Current occupational status: employed 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 Dereje Carolina, Clarice Weber, Maicol To and colleagues, with an educational karolyn from [employer]. Physical exam (Primary Care) Vital Signs: Last Vital Signs Temp 97.9 F 12/05/23 09:01 Pulse 102 H 12/05/23 09:01 Resp 16 12/05/23 09:01 BP 120/68 12/05/23 09:01 Pulse Ox 98 12/05/23 09:01 Oxygen Delivery Method Room Air 12/05/23 09:01 BMI result Body Mass Index 24.5 Tobacco/Smoking Status: Tobacco use Status Tobacco use date assessed 12/05/23 12/05/23 09:00 Patient Tobacco Use Status Never used Tobacco 12/05/23 08:58 e-Cigarette/Vaping Use Never Used 12/05/23 08:58 Thrive Assessment: Date of Thrive Assessment Date Thrive assessed 07/11/23 12/05/23 08:58 Assessment and Plan Assessment & Plan (1) OLIVER (generalized anxiety disorder): Code(s): F41.1 - Generalized anxiety disorder (2) Type 1 diabetes mellitus with complication, with long-term current use of insulin: Code(s): E10.8 - Type 1 diabetes mellitus with unspecified complications (3) Insomnia due to mental disorder: Code(s): F51.05 - Insomnia due to other mental disorder (4) Acne: Code(s): L70.9 - Acne, unspecified Qualifiers: Acne type: acne vulgaris Qualified Code(s): L70.0 - Acne vulgaris Orders: Orders Complete Blood Count no Diff Today E10.8 - Type 1 diabetes mellitus with unspecified complications Hemoglobin A1c Today E10.8 - Type 1 diabetes mellitus with unspecified complications Comprehensive Carson. Panel Fast Today E10.8 - Type 1 diabetes mellitus with unspecified complications Lipid Panel Today E10.8 - Type 1 diabetes mellitus with unspecified complications TSH reflex Free T4 Today E10.8 - Type 1 diabetes mellitus with unspecified comp lications Vitamin B12 and Folate Today E10.8 - Type 1 diabetes mellitus with unspecified complications Microalbumin, Random (w Creat) Today E10.8 - Type 1 diabetes mellitus with unspecified complications Referrals Counseling Referral F41.1 - Generalized anxiety disorder Patient Instructions: Franklin Velazquez Counselor, [facility] Verified [place],?[id number] Life is constantly changing. Navigating these changes can be incredibly d ifficult. Chances are at some point most us will experience difficulties in our careers, intimate relationships, family relationships, and in relation to ourselves. Many of us, at some point, will face the impact of trauma, loss, addiction, anxiety, or depression. It is normal to feel overwhelmed, stuck, and helpless at times to deal with the mosaic of challenges life presents us. These challenges get in the way of living the life we want. If you're ready to take your life back you've come to the right place. [employer] Coding Level of Care Code Est Pt Level 5 (56221) Diagnoses OLIVER (generalized anxiety disorder) F41.1 Type 1 diabetes mellitus with complication, with long-term current use of insulin E10.8 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 Acne vulgaris L70.0 Acne type: acne vulgaris
[2023-12-05 09:01] VITALS: BP 120/68; PULSE 102; RESP 16; TEMP 36.6; O2SAT 98; BMI 24.5
== END 2023-12-05 09:37 | disposition home or self-care (01) ==
PROVIDERS: PCP Nurse Practitioner Family; Visit Provider Nurse Practitioner Family
DX: F41.1 Generalized anxiety disorder (principal); E10.8 Type 1 diabetes mellitus with unspecified complications; F51.05 Insomnia due to other mental disorder; L70.0 Acne vulgaris
CPT/HCPCS: 99215

== ENCOUNTER 2024-03-12 07:59 | Outpatient (AMB) | payer OTHER, SELFPAY ==
--- NOTE | 2024-03-12 08:03 | MHC.PC.OV ---
Vital Signs 03/12/24 08:09 Height 6 ft 1 in Weight 184 lb 8 oz BMI 24.3 BP 118/68 Blood Pressure Location Lt brachial Position Sitting Respiration 13 Pulse 85 Pulse Source Pulse Oximeter Pulse Oximetry (%) 95 Oxygen Delivery Method Room Air Intake Visit Reasons: CPE Intake Note: physical [place] Clerk Required: No Allergies amoxicillin Allergy (Mild, Verified 03/12/24 08:15) Hives penicillin V Allergy (Mild, Verified 03/12/24 08:15) Hives Medication List - Last Reconciled 03/12/24 by Kathy Sotomayor [facility] blood-glucose sensor (Dexcom G7 Sensor device) DIRECTED CHANGE EVERY 10 DAYS glucagon 3 mg/actuation (Baqsimi) 3 mg intranasal ONCE insulin glargine (Basaglar KwikPen U-100 Insulin) 36 units (0.36 mL) subcut BID insulin lispro (Humalog KwikPen (U-100) Insulin) 1 unit for every 10 grams of carbohydrates subcutaneously 3 times a d subcutaneously 3 times a day; meloxicam 7.5 mg PO DAILY Tobacco use date assessed: 12/05/23 Dental Screening Dental Screen Date: 03/12/24 Did you have a dental visit in the last 12 months?: Yes Did you have a dental problem in the last 6 months where you did not have access to dental care?: No Was dental information given to patient?: Patient has dentist HPI HPI Comments History of Present Illness Details 33 y/o M with IDDM with complications, mild nonproliferative diabetic retinopathy, MDD,OLIVER, family hx of addiction, OLIVER, insomnia Health Maintenance: DME 04/2021, reports he has annual visits. Asked him to get me these reports; has a diabetic eye exam scheduled in 05/2024 @ [facility]. Tdap 03/12/24 Flu 2023 Specialists: Optho, wears glasses Endo, next appt 04/16/24 DM Educator Counselor - did not pursue Here today for CPE Working on adjusting insulin w/ Endo. Using CGM. Midday lows and some night time highs. Acne - using proactive + effect, will continue. Counseling - did not pursue. Supported by Girlfriend. Mood fluctuates. 80% of the time it is good. Low patience at times. Anxiety/insomnia - continues. Has never been on meds. Hx of depression about 4 years. Microdosed mushrooms for 1.5 years with + effect. A1c 6.6% today. Has been sick with URI sx for the ;ast 10 days or so. Better since onset however cont. Plan: Discussed starting buspirone or Hydroxyzine VS restarting mushrooms. [place] decision making to Start and trial hydroxyzine for anxiety. Advised to start w/ HS dosing to help insomnia and then use as needed from there to control anxiety sx. Viral URI w/ nasal and L TM congestion, advised if sx persist or worsen in 5 days, to call the office or send portal message as may require antibiotics at that time. Cont care w/ care team Cont meds as prescribed. Telehealth fu 4 weeks, to fu on anxiety/insomnia and hydroxyzine start. Routine fu 6 months, 30 minutes. [facility] Medical History (Updated 03/12/24 @ 09:16 by Kathy Sotomayor, [facility]) Type 1 diabetes mellitus No pertinent past medical history Surgical History History of surgery on arm Family History Mother Migraine headache Father Acute alcohol abuse Other Mental health disorder Substance abuse Social History Housing: House Alcohol intake: current Alcohol intake frequency: a few times a week Patient Tobacco Use Status: Never used Tobacco e-Cigarette/Vaping Use: Never Used Second Hand Smoke Exposure: No service: No Current occupational status: employed 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 Current occupational exposures/hazards: No Cognitive needs: Yes Hearing needs: No Vision needs: No Questionnaire PHQ-9 Over the last 2 weeks, how often have you been bothered by any of the following problems? 1. Little interest or pleasure in doing things: more than half the days 2. Feeling down, depressed, or hopeless: not at all 3. Trouble falling or staying asleep, or sleeping too much: several days 4. Feeling tired or having little energy: several days 5. Poor appetite or overeating: not at all 6. Feeling bad about yourself - or that you are a failure or have let yourself or your family down: not at all 7. Trouble concentrating on things, such as reading the newspaper or watching television: nearly every day 8. Moving or speaking so slowly that other people could have noticed. Or the opposite - being so fidgety or restless that you have been moving around a lot more than usual: not at all 9. Thoughts that you would be better off or of hurting yourself in some way: not at all Total score: 7 Depression Screening Interpretation: Negative Depression Screening Done: Yes 42720 - PHQ-9 Billing: Yes Source: Developed by Drs. Dereje Carolina, Clarice Weber, Maicol To and colleagues, with an educational karolyn from [employer] Thrive Questionnaire Date Thrive assessed: 03/12/24 I am a: Patient What is your living situation today?: I have a steady place to live Within the past 12 months, did the food you bought not last and you didn't have the money to get more?: Never true Within the past 12 months, did you worry whether your food would run out before you got money to buy more?: Never true Do you have trouble paying for medicines?: No Do you have trouble getting transportation to medical appointments?: No Do you have trouble paying your heating and electricity bill?: No Do you have trouble taking care of your child, family member or friend?: No Do you have trouble with day-to-day activities such as bathing, preparing meals, shopping, managing finances, etc.?: No Are you currently unemployed and looking for a job?: No Are you interested in more education?: No Please select the resources that you would like help with: None Currently or been in a relationship where the following occur: No concerns reported THRIVE Score: 0 AUDIT C Alcohol Use Questionnaire (AUDIT-C) 1. How often do you have a drink containing alcohol?: 2-4 times a month 2. How many drinks containing alcohol do you have on a typical day when you are drinking?: 1 or 2 3. How often do you have six or more drinks on one occasion?: Never Total Score: 2 Score Reviewed/Action Taken: Yes OLIVER-7 AMB Questionnaire OLIVER-7 Date OLIVER - 7 assessed: 03/12/24 Feeling nervous, anxious, or on edge: 1 = Several days Not being able to stop or control worryin = Not at all Worrying too much about different things: 1 = Several days Trouble relaxin = Nearly every day Being so restless that it is hard to sit still: 3 = Nearly every day Becoming easily annoyed or irritable: 1 = Several days Feeling afraid as if something awful might happen: 0 = Not at all Total OLIVER-7 score (0-4 normal; 5-9 mild; 10-14 moderate; 15-21 severe): 9 Source: Developed by Drs. Dereje Carolina, Clarice Weber, Maicol To and colleagues, with an educational karolyn from [employer] OLIVER-7 Assessment Billing OLIVER-7 Assessment Tool: OLIVER-7 Assessment 17843 Review of Systems Const Details: Constitutional: Denies fever. Skin: Denies rash. Eye: Denies eye pain. ENMT: Denies sore throat n. Respiratory: Denies shortness of breath and cough. Gastrointestinal: Denies nausea, vomiting or abdominal pain. Cardiovascular: Denies chest pain and syncope. Genitourinary: Denies dysuria. Musculoskeletal: Denies back pain and extremity pain. Neurologic: Denies headaches, confusion, and weakness. Psychiatric: Denies suicidal thoughts and substance abuse. Allergy/ Immunologic: Denies impaired immunity. Physical exam (Primary Care) Vital Signs: Last Vital Signs Pulse 85 03/12/24 08:09 Resp 13 03/12/24 08:09 BP 118/68 03/12/24 08:09 Pulse Ox 95 03/12/24 08:09 Oxygen Delivery Method Room Air 03/12/24 08:09 BMI result Body Mass Index 24.3 Tobacco/Smoking Status: Tobacco use Status Tobacco use date assessed 12/05/23 03/12/24 08:05 Patient Tobacco Use Status Never used Tobacco 03/12/24 08:05 e-Cigarette/Vaping Use Never Used 03/12/24 08:05 PHQ-9: PHQ-9 Score PHQ-9: Total score 7 03/12/24 08:36 Depression Screening Interpretation: Negative Thrive Assessment: Date of Thrive Assessment Date Thrive assessed 03/12/24 03/12/24 08:05 Currently or been in a relationship where the following occur: No concerns reported Const Other: General: Well developed, well nourished, in no acute distress. Appears stated age. Head: Normocephalic, atraumatic. Eyes: Pupils are equal, round and reactive to light and accommodation. Conjunctivae are clear. Vision grossly normal. Ears: TM intact bilat, clear on R, mild congestion on L, EACS WNL Nose: Clear drainage, turbinates edematous L>R, no sinus tenderness w/ palpation Mouth: There are no ulcers or lesions noted. No inflammation, no post nasal drip, no plaques nor exudates. Neck: Supple, no adenopathy or thyromegaly. Lungs: Clear to auscultation bilaterally. No rales, rhonchi or wheeze noted. Good air flow in all samuels. Heart: Regular rate and rhythm. No murmurs, click, rubs or gallops are noted. Abdomen: Bowel sounds present in all quadrants. The abdomen is soft, nontender, with no masses or organomegaly noted. No hernias are noted. Musculoskeletal: Joints are nontender, without swelling, redness, or effusions. Range of motion is observed to be normal. Pulses: Peripheral pulses are equal and palpable bilaterally. Extremities: No clubbing, cyanosis nor edema is noted. Neurologic: Gait and station normal. Cranial Nerves 2-12 intact. Motor strength grossly symmetrical and intact. No sensory loss. Balance normal. Skin: No rashes, ulcers, or lesions noted. Turgor is good. Skin color is good. Hair and nails are without abnormalities. Mild facial acne Psych: Normal eye contact, affect and mood appropriate, and normal interactions. Patient is alert and appropriate to context. Results AMB Hemoglobin A1c AMB Hemoglobin A1c 6.6 % Last Edit by Herb Akers MA on 03/12/24 08:21 Immunizations Boostrix Tdap 2.5 Lf unit-8 mcg-5 Lf/0.5 mL intramuscular syringe Performing Provider: GENO Geronimo Performing Location: [facility] Administered by: Berna Salazar RN on 03/12/24 08:49 Dose Route Admin Location Dispensed Lot Number Expiration Date NDC Calculation Reviewer 0.5 mL IM Right Deltoid 0.5 mL [id number] 03/22/26 [id number] [employer] VIS Given Date VIS Provided VIS Publication Date 03/12/24 Single Vaccine 20 Eligibility Eligibility Date Funding Source Not VFC Eligible 03/12/24 Private Results Reviewed Results Reviewed: Laboratory Last Values Hgb A1c (Clinic) 6.6 % (4.0-6.0) H 03/12/24 08:09 Coding Level of Care Code Est Pt Level 2 (41621) Est Pt Prev Care 18-39y(78012) Diagnoses Encounter for general adult medical examination with abnormal findings Z00.01 OLIVER (generalized anxiety disorder) F41.1 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 (2) OLIVER (generalized anxiety disorder): Code(s): F41.1 - Generalized anxiety disorder Category: Medical Plan: . (3) Insomnia due to mental disorder: Code(s): F51.05 - Insomnia due to other mental disorder Category: Medical Plan: . (4) Viral URI: Code(s): J06.9 - Acute upper respiratory infection, unspecified Plan: . An additional 10 minutes was spent addressing the problem(s) noted at todays visit. This includes time spent before the visit reviewing the chart, time spent during the visit, and time spent after the visit on documentation Orders: Orders TDaP Immunization Today Z23 - Encounter for immunization AMB Hemoglobin A1c Today Z13.9 - Encounter for screening, unspecified Medications: New hydroxyzine HCl 1/2 to 2 tabs (12.5-50mg) TID PRN insomnia and anxiety 25 mg PO TID PRN 90 tabs 0RF anxiety/insom Patient Instructions: Health screenings for men ages 40 to 64 You should visit your health care provider regularly, even if you feel healthy. The purpose of these visits is to: Screen for medical issues Assess your risk for future medical problems Encourage a healthy lifestyle Update vaccinations and other preventive care services Help you get to know your provider in case of an illness Information Even if you feel fine, you should still see your provider for regular checkups. These visits can help you avoid problems in the future. For example, the only way to find out if you have high blood pressure is to have it checked regularly. High blood sugar and high cholesterol level also may not have any symptoms in the early stages. Simple blood tests can check for these conditions. There are specific times when you should see your provider or receive specific health screenings. The [place] Preventive Services Task Force publishes a list of recommended screenings. Below are screening guidelines for men ages 40 to 64. BLOOD PRESSURE SCREENING Have your blood pressure checked at least once every year. Watch for blood pressure screenings in your area. Ask your provider if you can stop in to have your blood pressure checked. Ask your provider if you need your blood pressure checked more often if: You have diabetes, heart disease, kidney problems, or are overweight or have certain other health conditions You have a first-degree relative with high blood pressure You are Black Your blood pressure top number is from 120 to 129 mm Hg, or the bottom number is from 70 to 79 mm Hg If the top number is 130 mm Hg or greater or the bottom number is 80 mm Hg or greater, this is considered stage 1 hypertension. Schedule an appointment with your provider to learn how you can lower your blood pressure. Effects of age on blood pressure CHOLESTEROL SCREENING Cholesterol screening should begin at age 35 for men with no known risk factors for coronary heart disease. Repeat cholesterol screening should take place: Every 5 years for men with normal cholesterol levels More often if changes occur in lifestyle (including weight gain and diet) More often if you have diabetes, heart disease, kidney problems, or certain other conditions COLORECTAL CANCER SCREENING If you are under age 45, talk to your provider about getting screened. You may need to be screened if you have a strong family history of colon cancer or polyps. Screening may also be considered if you have risk factors such as a history of inflammatory bowel disease or polyps. If you are age 45 to 75, you should be screened for colorectal cancer. There are several screening tests available: A stool-based fecal occult blood (gFOBT) or fecal immunochemical test (FIT) every year A stool sDNA test every 1 to 3 years Flexible sigmoidoscopy every 5 years or every 10 years with stool testing FIT done every year CT colonography (virtual colonoscopy) every 5 years Colonoscopy every 10 years You may need a colonoscopy more often if you have risk factors for colorectal cancer, such as: Ulcerative colitis A personal or family history of colorectal cancer A history of growths in your colon called adenomatous polyps DENTAL EXAM Go to the dentist once or twice every year for an exam and cleaning. Your dentist will evaluate if you have a need for more frequent visits. DIABETES SCREENING All adults who do not have risk factors for diabetes should be screened starting at age 35 and repeated every 3 years. If you have other risk factors for diabetes, such as a first degree relative with diabetes, overweight or obesity, high blood pressure, prediabetes, or a history of heart disease, you may be tested more often. If you are overweight and have other risk factors, such as high blood pressure and are planning to become , screening is recommended. EYE EXAM Have an eye exam every 2 to 4 years ages 40 to 54 and every 1 to 3 years ages 55 to 64. Your provider may recommend more frequent eye exams if you have vision problems or glaucoma risk. Have an eye exam that includes an examination of your retina (back of your eye) at least every year if you have diabetes. IMMUNIZATIONS Commonly needed vaccines include: Flu shot: get one every year COVID-19 vaccine: ask your provider what is best for you Tetanus-diphtheria and acellular pertussis (Tdap) vaccine: have as one of your tetanus-diphtheria vaccines if you did not receive it as an adolescent Tetanus-diphtheria: have a booster (or Tdap) every 10 years Varicella vaccine: receive 2 doses if you never had chickenpox or the varicella vaccine and were born in 1980 or after Hepatitis B vaccine: receive 2, 3, or 4 doses, depending on your exact circumstances, if you did not receive these as a child or adolescent, until age 59 Shingles (herpes zoster) vaccine: at or after age 50 Ask your provider if you should receive other immunizations, especially if you have certain medical conditions, such as diabetes or are at increased risk for some diseases such as pneumonia. INFECTIOUS DISEASE SCREENING Screening for hepatitis C: all adults ages 18 to 79 should get a one-time test for hepatitis C. Screening for human immunodeficiency virus (HIV): all people ages 15 to 65 should get a one-time test for HIV. Depending on your lifestyle and medical history, you may need to be screened for infections such as syphilis, chlamydia, and other infections. LUNG CANCER SCREENING You should have an annual screening for lung cancer with low-dose computed tomography (LDCT) if: You are age 50 to 80 years AND You have a 20 pack-year smoking history AND You currently smoke or have quit within the past 15 years OSTEOPOROSIS SCREENING If you are age 50 to 64 and have risk factors for osteoporosis, you should discuss screening with your provider. Risk factors can include long-term steroid use, low body weight, smoking, heavy alcohol use, having a fracture after age 50, or a family history of hip fracture or osteoporosis. Osteoporosis PHYSICAL EXAM All adults should visit their provider from time to time, even if they are healthy. The purpose of these visits is to: Screen for diseases Assess risk of future medical problems Encourage a healthy lifestyle Update vaccinations and other preventive care services Maintain a relationship with a provider in case of an illness Your height, weight, and body mass index (BMI) should be checked at every exam. During your exam, your provider may ask you about: Depression and anxiety Diet and exercise Alcohol and tobacco use Safety, such as use of seat belts and smoke detectors Your medicines and risk for interactions PROSTATE CANCER SCREENING If you're 55 through 69 years old, before having the test, talk to your provider about the pros and cons of having a PSA test. Ask about: Whether screening decreases your chance of dying from prostate cancer. Whether there is any harm from prostate cancer screening, such as side effects from testing or overtreatment of cancer when discovered. Whether you have a higher risk of prostate cancer than others. If you are age 55 or younger, screening is not generally recommended. You should talk with your provider about if you have a higher risk for prostate cancer. Risk factors include: Having a family history of prostate cancer (especially a brother or father) Being If you choose to be tested, the PSA blood test is repeated over time (yearly or less often), though the best frequency is not known. Prostate examinations are no longer routinely done on men with no symptoms. Prostate cancer SKIN EXAM Your provider may check your skin for signs of skin cancer, especially if you're at high risk. People at high risk include those who have had skin cancer before, have close relatives with skin cancer, or have a weakened immune system. TESTICULAR EXAM The [place] Preventive Services Task Force (USPSTF) now recommends against performing testicular self-exams. Doing testicular self-exams has been shown to have little to no benefit.
[2024-03-12 08:09] VITALS: BP 118/68; PULSE 85; RESP 13; O2SAT 95; BMI 24.3
== END 2024-03-12 08:44 | disposition home or self-care (01) ==
LOC: HO.HMCFM 08:00
PROVIDERS: PCP Nurse Practitioner Family; Visit Provider Nurse Practitioner Family
DX: Z00.00 Encounter for general adult medical examination without abnormal findings (principal); F41.1 Generalized anxiety disorder; F51.05 Insomnia due to other mental disorder; J06.9 Acute upper respiratory infection, unspecified; Z23 Encounter for immunization

== ENCOUNTER → 2024-03-12 07:59 | Outpatient (BNVA) | payer OTHER, SELFPAY | PROVIDERS: PCP Nurse Practitioner Family; Visit Provider Nurse Practitioner Family | DX: Z00.01 Encounter for general adult medical examination with abnormal findings (principal); F41.1 Generalized anxiety disorder; F51.05 Insomnia due to other mental disorder; J06.9 Acute upper respiratory infection, unspecified; E10.9 Type 1 diabetes mellitus without complications; Z23 Encounter for immunization | CPT/HCPCS: 83036; 90471; 90715; 96127 ==

== ENCOUNTER 2024-04-09 10:14 | Outpatient (AMB) | payer OTHER, SELFPAY ==
--- NOTE | 2024-04-09 16:15 | A.OFFPC_ITS ---
Intake Visit Reasons: 4 weeks telehealth fu anxiety Allergies amoxicillin Allergy (Mild, Verified 04/09/24 16:18) Hives penicillin V Allergy (Mild, Verified 04/09/24 16:18) Hives Medication List - Last Reconciled 04/09/24 by Kathy Sotomayor [facility]- blood-glucose sensor (Dexcom G7 Sensor device) DIRECTED CHANGE EVERY 10 DAYS glucagon 3 mg/actuation (Baqsimi) 3 mg intranasal ONCE hydroxyzine HCl 25 mg PO TID PRN insulin glargine (Basaglar KwikPen U-100 Insulin) 36 units (0.36 mL) subcut BID insulin lispro (Humalog KwikPen (U-100) Insulin) 1 unit for every 10 grams of carbohydrates subcutaneously 3 times a d subcutaneously 3 times a day; meloxicam 7.5 mg PO DAILY Tobacco use date assessed: 12/05/23 Dental Screening Dental Screen Date: 03/12/24 HPI HPI Comments History of Present Illness Details 33 y/o M with IDDM with complications, m ild nonproliferative diabetic retinopathy, MDD,OLIVER, family hx of addiction, OLIVER, insomnia Health Maintenance: DME 04/2021, reports he has annual visits. Asked him to get me these reports; has a diabetic eye exam scheduled in 05/2024 @ [facility]. Tdap 03/12/24 Flu 2023 Specialists: Optho, wears glasses Endo, next appt 04/16/24 DM Educator Counselor - did not pursue History of Present Illness The patient is a 33-year-old male presenting with anxiety. The anxiety is primarily experienced during the day, with notable triggers being work-related restructuring and changing job roles, which have significantly increased his anxiety levels. The patient has been using medication to manage symptoms, primarily taking a 25 mg tablet at bedtime, which initially led to excessive grogginess the following morning. To mitigate this, he reduced the dosage to half a tablet (12.5 mg), which maintained his sleep quality but reduced the morning grogginess. He has not yet taken the medication during the day. The anxiety is described as improving overall, potentially due to improved sleep quality enabling clearer thinking during the day. Review of Systems - Neurological: Reports improved sleep q uality but with morning grogginess when taking a full 25 mg tablet. - Psychiatric: Reports anxiety triggered by workplace changes; overall improvement noted. Note: This physical exam was conducted in conjunction with the patient via our Telehealth platform. Plan - Anxiety: Decrease hydroxyzine to 10 mg tablet to be taken at bedtime. The option to take half a 10 mg tablet (5 mg) during the day as needed is available. The patient should maintain the current 25 mg medication as a reserve in case the lower dose is insufficient. Patient was informed and verbally consented to the use of an ambient scribe for clinic note documentation during this visit. Discussion Notes I discussed with the patient the management plan for his anxiety, including the switch to a 10 mg tablet at bedtime to potentially reduce morning grogginess while maintaining effective anxiety control. We reviewed the option of taking a 5 mg tablet during the day if necessary. I advised the patient to continue monitoring his symptoms and maintain the current 25 mg tablets as a reserve. The importance of following up in four to six weeks was emphasized to assess the efficacy of the dosage change. The patient preferred follow-up via phone, which was agreed upon. He understands that he should contact the office sooner if his anxiety worsens or if the new regimen does not provide adequate relief. Patient Instructions - Start taking the prescribed 10 mg tabl et at bedtime. - You may take half a 10 mg tablet (5 mg ) during the day if needed for anxiety. - Keep the 25 mg tablets as a reserve in case the new dosage is insufficient. - Follow up by phone in four to six week s to assess the effectiveness of the medication adjustment. - Contact the office sooner if there are any changes or if the new medication regimen does not work effectively. Total time spent caring for the patient today was 15 minutes. This includes time spent before the visit reviewing the chart, time spent during the visit, and time spent after the visit on documentation [facility] Medical History (Updated 03/12/24 @ 09:16 by Kathy Sotomayor [facility]) Type 1 diabetes mellitus No pertinent past medical history Surgical History History of surgery on arm Family History Mother Migraine headache Father Acute alcohol abuse Other Mental health disorder Substance abuse Social History Housing: House Alcohol intake: current Alcohol intake frequency: a few times a week Patient Tobacco Use Status: Never used Tobacco e-Cigarette/Vaping Use: Never Used Second Hand Smoke Exposure: No service: No Current occupational status: employed Current occupation: [employer] Current occupational exposures/hazards: No Cognitive needs: Yes Hearing needs: No Vision needs: No Questionnaire Thrive Questionnaire Date Thrive assessed: 03/12/24 OLIVER-7 AMB Questionnaire OLIVER-7 Date OLIVER - 7 assessed: 03/12/24 Source: Developed by Drs. Dereje Carolina, Clarice Weber, Maicol To and colleagues, with an educational karolyn from [employer]. Physical exam (Primary Care) Tobacco/Smoking Status: Tobacco use Status Tobacco use date assessed 12/05/23 03/12/24 08:05 Patient Tobacco Use Status Never used Tobacco 03/12/24 08:05 e-Cigarette/Vaping Use Never Used 03/12/24 08:05 Thrive Assessment: Date of Thrive Assessment Date Thrive assessed 03/12/24 03/12/24 08:05 Telehealth Telehealth Telehealth Platform: [employer] Location of provider rendering services: practice address Location of patient: address on file Patient Identification confirmed using: Name, : Yes Telehealth method: voice only Patient verbally consented to treatment: Yes Patient verbally consented to billing insurance company: Yes Patient informed of any privacy concerns related to visit: Yes Minutes spent on Phone/Video with Pt.: 6 Coding Level of Care Code Est Pt Level 2 (52814) Complex EM visit Add On G2211 Diagnoses OLIVER (generalized anxiety disorder) F41.1 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 Medications: New hydroxyzine HCl 10 mg PO TID PRN 90 tabs 1RF ANXIETY/INSOMNIA Discontinued hydroxyzine HCl 1/2 to 2 tabs (12.5-50mg) TID PRN insomnia and anxiety Discontinued Reason: Doctor's Order 25 mg PO TID PRN 90 tabs 0RF anxiety/insom
== END 2024-04-09 16:24 | disposition home or self-care (01) ==
LOC: HO.HMCFM 10:14
PROVIDERS: PCP Nurse Practitioner Family; Visit Provider Nurse Practitioner Family
DX: F41.1 Generalized anxiety disorder (principal); F51.05 Insomnia due to other mental disorder

== ENCOUNTER → 2024-04-09 10:14 | Outpatient (BNVA) | payer OTHER, SELFPAY | PROVIDERS: PCP Nurse Practitioner Family; Visit Provider Nurse Practitioner Family ==

== ENCOUNTER 2024-07-01 16:15 | Outpatient (AMB) | payer OTHER, SELFPAY ==
--- NOTE | 2024-07-01 16:28 | MHC.PC.OV ---
Intake Visit Reasons: FMLA Allergies amoxicillin Allergy (Mild, Verified 04/09/24 16:18) Hives penicillin V Allergy (Mild, Verified 04/09/24 16:18) Hives Tobacco use date assessed: 07/01/24 Dental Screening Dental Screen Date: 07/01/24 Did you have a dental visit in the last 12 months?: Yes Did you have a dental problem in the last 6 months where you did not have access to dental care?: No Was dental information given to patient?: Patient has dentist HPI HPI Comments History of Present Illness Details History of Present Illness - The patient is a 33-year-old male presenting with diabetes management. - He was diagnosed with Diabetes Mellitus in 2004 and reports homeostasis in his condition with a recent A1c of ~6.7 to 6.8. 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 - He associates stable blood glucose levels with improved sleep quality. - He reports no hospital admissions related to diabetes recently. - The patient also reports on insomnia management: - Hydroxyzine was prescribed but is being used sparingly due to morning grogginess. - The patient associates better glycemic control with improved sleep patterns. - He reports improved sleep condition, not using hydroxyzine for two weeks. - Recent eye examinations show significant improvements in diabetic retinopathy. 05/2024 [facility] Would like to renew Intermittent FMLA Current one expires 06/07/24. Has been effective Same employer Physical Exam Awake alert NAD Speaking in full sentences Engaging, appropriate Skin pink warm and dry Mood and affect appropriate Assessment and Plan 1. Diabetes Mellitus: The patient demonstrates good control of Diabetes Mellitus with recent Hemoglobin A1c values around 6.7-6.8. He will continue regular follow-ups with the flame cutting machine operator helper Dr. Lawrence. No recent hospitalizations reflect stable management, and maintaining effective glycemic control remains a priority. 2. Insomnia: Insomnia is effectively managed with hydroxyzine, which the patient uses judiciously due to concerns about side effects like grogginess. Improved sleep quality correlates with stable blood glucose levels, highlighting the dual benefits of diabetes management on other health aspects. Continued monitoring and patient feedback will guide the management approach. 3. Diabetic Retinopathy: The patient's diabetic retinopathy shows significant improvement on recent examination. Regular ophthalmologic evaluations are advised alongside optimal glycemic control to manage and further mitigate diabetic eye changes. 4. Intermittent FMLA renewal 06/08/24-02/05/25 completed. 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 Telehealth Attestation The visit was conducted via telehealth, and all details were accurately captured in this documentation format. The patient has been explained that this is an interactive (audio/video) telehealth encounter and what that consists of. The patient understands and wishes to proceed. [email or web address] platform was used. Total time spent caring for the patient today was 20 minutes. This includes time spent before the visit reviewing the chart, time spent during the visit, and time spent after the visit on documentation, reviewing laboratory results, diagnostic imaging, medications, performing a medically necessary evaluation, counseling on diagnoses, care coordination, ordering appropriate tests, ordering appropriate medications, review of tests performed by other providers, reporting test results with the patient, communication with other healthcare providers. RTO as scheduled in September, sooner [facility] Medical History (Updated 03/12/24 @ 09:16 by Kathy Sotomayor, [facility]) No pertinent past medical history Type 1 diabetes mellitus Surgical History History of surgery on arm Family History Mother Migraine headache Father Acute alcohol abuse Other Mental health disorder Substance abuse Social History Housing: House Alcohol intake: current Alcohol intake frequency: a few times a week Patient Tobacco Use Status: Never used Tobacco e-Cigarette/Vaping Use: Never Used Second Hand Smoke Exposure: No service: No Current occupational status: employed Current occupation: [employer] Current occupational exposures/hazards: No Cognitive needs: Yes Hearing needs: No Vision needs: No Questionnaire PHQ-9 Over the last 2 weeks, how often have you been bothered by any of the following problems? 1. Little interest or pleasure in doing things: not at all 2. Feeling down, depressed, or hopeless: not at all 3. Trouble falling or staying asleep, or sleeping too much: not at all 4. Feeling tired or having little energy: not at all 5. Poor appetite or overeating: not at all 6. Feeling bad about yourself - or that you are a failure or have let yourself or your family down: not at all 7. Trouble concentrating on things, such as reading the newspaper or watching television: not at all 8. Moving or speaking so slowly that other people could have noticed. Or the opposite - being so fidgety or restless that you have been moving around a lot more than usual: not at all 9. Thoughts that you would be better off or of hurting yourself in some way: not at all Total score: 0 Depression Screening Interpretation: Negative Depression Screening Done: Yes 24844 - PHQ-9 Billing: Yes Source: Developed by Drs. Dereje Carolina, Clarice Weber, Maicol To and colleagues, with an educational karolyn from [employer]. Thrive Questionnaire Date Thrive assessed: 07/01/24 I am a: Patient What is your living situation today?: I have a steady place to live Within the past 12 months, did the food you bought not last and you didn't have the money to get more?: Never true Within the past 12 months, did you worry whether your food would run out before you got money to buy more?: Never true Do you have trouble paying for medicines?: No Do you have trouble getting transportation to medical appointments?: No Do you have trouble paying your heating and electricity bill?: No Do you have trouble taking care of your child, family member or friend?: No Do you have trouble with day-to-day activities such as bathing, preparing meals, shopping, managing finances, etc.?: No Are you currently unemployed and looking for a job?: No Are you interested in more education?: No Please select the resources that you would like help with: None Currently or been in a relationship where the following occur: No concerns reported THRIVE Score: 0 AUDIT C Alcohol Use Questionnaire (AUDIT-C) 1. How often do you have a drink containing alcohol?: Monthly or less 2. How many drinks containing alcohol do you have on a typical day when you are drinking?: 1 or 2 3. How often do you have six or more drinks on one occasion?: Never Total Score: 1 Score Reviewed/Action Taken: Yes OLIVER-7 AMB Questionnaire OLIVER-7 Date OLIVER - 7 assessed: 07/01/24 Feeling nervous, anxious, or on edge: 0 = Not at all Not being able to stop or control worryin = Not at all Worrying too much about different things: 0 = Not at all Trouble relaxin = Not at all Being so restless that it is hard to sit still: 0 = Not at all Becoming easily annoyed or irritable: 0 = Not at all Feeling afraid as if something awful might happen: 0 = Not at all Total OLIVER-7 score (0-4 normal; 5-9 mild; 10-14 moderate; 15-21 severe): 0 Source: Developed by Drs. Dereje Carolina, Clarice Weber, Maicol To and colleagues, with an educational karolyn from [employer]. OLIVER-7 Assessment Billing OLIVER-7 Assessment Tool: OLIVER-7 Assessment 26896 Physical exam (Primary Care) Tobacco/Smoking Status: Tobacco use Status Tobacco use date assessed 12/05/23 04/09/24 16:15 Patient Tobacco Use Status Never used Tobacco 04/09/24 16:15 e-Cigarette/Vaping Use Never Used 04/09/24 16:15 Depression Screening Interpretation: Negative Thrive Assessment: Date of Thrive Assessment Date Thrive assessed 03/12/24 04/09/24 16:15 Currently or been in a relationship where the following occur: No concerns reported Telehealth Telehealth Telehealth Platform: [facility] Location of provider rendering services: practice address Location of patient: address on file Patient Identification confirmed using: Name, : Yes Telehealth method: video Patient verbally consented to treatment: Yes Patient verbally consented to billing insurance company: Yes Patient informed of any privacy concerns related to visit: Yes Minutes spent on Phone/Video with Pt.: 15 Coding Level of Care Code Tele Est Pt Level 4 (62984) Complex EM visit Add On G2211 Diagnoses Type 1 diabetes mellitus with complication, with long-term current use of insulin E10.8 Encounters for administrative purpose Z02.9 Mild nonproliferative diabetic retinopathy of both eyes associated with type 1 diabetes mellitus, macular edema presence unspecified E10.3293 Diabetes mellitus type: type 1 Diabetic retinopathy severity: with mild nonproliferative retinopathy Diabetes mellitus macular edema: macular edema presence unspecified Laterality: bilateral 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 Additional Codes PHQ-9 - 47447 - PHQ-9 Billing: Yes ([id number]) OLIVER-7 Assessment Billing - OLIVER-7 Assessment Tool: OLIVER-7 Assessment 07483 ([id number]) Assessment & Plan Assessment & Plan (1) Type 1 diabetes mellitus with complication, with long-term current use of insulin: Code(s): E10.8 - Type 1 diabetes mellitus with unspecified complications Category: Medical (2) Encounters for administrative purpose: Code(s): Z02.9 - Encounter for administrative examinations, unspecified (3) Diabetic retinopathy: Code(s): E11.319 - Type 2 diabetes mellitus with unspecified diabetic retinopathy without macular edema Category: Medical Qualifiers: Diabetes mellitus type: type 1 Diabetic retinopathy severity: with mild nonproliferative retinopathy Diabetes mellitus macular edema: macular edema presence unspecified Laterality: bilateral Qualified Code(s): E10.3293 - Type 1 diabetes mellitus with mild nonproliferative diabetic retinopathy without macular edema, bilateral (4) Insomnia due to mental disorder: Code(s): F51.05 - Insomnia due to other mental disorder Category: Medical Plan .
== END 2024-07-01 17:05 | disposition home or self-care (01) ==
LOC: HO.HMCFM 16:15
PROVIDERS: PCP Nurse Practitioner Family; Visit Provider Nurse Practitioner Family
DX: E10.3293 Type 1 diabetes mellitus with mild nonproliferative diabetic retinopathy without macular edema, bilateral (principal); F51.05 Insomnia due to other mental disorder

== ENCOUNTER → 2024-07-01 16:15 | Outpatient (BNVA) | payer OTHER, SELFPAY | PROVIDERS: PCP Nurse Practitioner Family; Visit Provider Nurse Practitioner Family | DX: Z02.9 Encounter for administrative examinations, unspecified (principal); E10.8 Type 1 diabetes mellitus with unspecified complications; E10.3293 Type 1 diabetes mellitus with mild nonproliferative diabetic retinopathy without macular edema, bilateral; F51.05 Insomnia due to other mental disorder | CPT/HCPCS: 96127 ==

== ENCOUNTER 2024-07-29 09:07 | Outpatient (AMB) | payer OTHER, SELFPAY ==
--- NOTE | 2024-07-29 09:08 | A.OFFPC_ITS ---
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: No Allergies amoxicillin Allergy (Mild, Verified 07/29/24 09:16) Hives penicillin V Allergy (Mild, Verified 07/29/24 09:16) Hives Medication List - Last Reconciled 07/29/24 by Kathy Sotomayor, [facility] blood-glucose sensor (Dexcom G7 Sensor device) DIRECTED CHANGE EVERY 10 DAYS glucagon 3 mg/actuation (Baqsimi) 3 mg intranasal ONCE hydroxyzine HCl 10 mg PO TID insulin glargine (Basaglar KwikPen U-100 Insulin) 36 units (0.36 mL) subcut BID insulin lispro (Humalog KwikPen (U-100) Insulin) 1 unit for every 10 grams of carbohydrates subcutaneously 3 times a d subcutaneously 3 times a day; meloxicam 7.5 mg PO DAILY Tobacco use date assessed: 07/29/24 Dental Screening Dental Screen Date: 07/29/24 Did you have a dental visit in the last 12 months?: Yes Did you have a dental problem in the last 6 months where you did not have access to dental care?: No Was dental information given to patient?: Patient has dentist HPI HPI Comments History of Present Illness Details 33 y/o M with IDDM with complications, m ild nonproliferative diabetic retinopathy, MDD,OLIVER, family hx of addiction, OLIVER, insomnia Health Maintenance: DME 04/2021, reports he has annual visits. Asked him to get me these reports; has a diabetic eye exam scheduled in 05/2024 @ [facility]. Tdap 03/12/24 Flu 2023 - The patient is a 33-year-old male pres enting with uncontrolled hyperglycemia. - Experienced elevated blood glucose lev els unresponsive to increased insulin therapy from Sunday night to . - Employed strategies such as increased insulin dosages and fasting, with transient improvement; blood glucose decreased to 180 mg/dL at best. - By Sunday, glucose levels settled to a range of 190 to 200 mg/dL, but variability persisted. - Reports persistent morning hyperglycem ia of approximately 200 mg/dL despite insulin treatment. - Emotional impacts noted, particularly irritability and interpersonal challenges correlated with hyperglycemia. Hydroxyzine helpful. [facility] ED visit 07/24/24 for Hyperglycemia not responding to home insulin regimen. Work up reviewed and negative. Labs WNL. No ketones, DKA, infection. Sent home w/o change in tx plan. Appt w/ Endo tomorrow. - Chronic cough dyct-[id number] mentioned, characterized by a light tickling sensation occurring sporadically. Physical Exam Awake alert NAD RRR LS CTAB Abd with lipohypertrophy Engaging, appropriate Skin pink warm and dry Mood and affect appropriate Discussion: During the consultation, we reviewed the complexities of managing insulin resistance and hyperglycemia. I proposed that injection site scar tissue might be contributing, leading to poor insulin absorption. We discussed rotating insulin injection sites to areas with minimal scar tissue, such as the back of the arms, thighs, and buttocks, potentially utilizing longer needles for better penetration. I emphasized verifying the patient's CGM calibrations since device inaccuracies remain a consideration, albeit remote given concurrent fingerstick confirmations. I recommended monitoring post-injection glucose responses more stringently. For the persistent cough, I advised roux-qaa-gkhetrn Flonase to mitigate potential post-nasal drip exacerbated post-COVID symptoms. Family and emotional stress management were recognized as integral, advising open communication and adjusting support strategies with significant others. Lastly, I provided guidance on accessing our communication portal to streamline further healthcare interactions and confirm pharmacy transition - will be using mail away in the future. A&P: 1. Hyperglycemia: - Persistent hyperglycemia noted despite insulin therapy escalation; suggests issues with absorption possibly due to tissue changes. Rotating injection sites and using extended needle lengths were advised. Continued glucose monitoring pos t-injection recommended. FU with Endo tomorrow 2. Tissue Hyperplasia at Injection Sites : - Suggested changes in injection routine to mitigate observable site firming due to repeated insulin use. Site rotation strategy initiated. 3. Anxiety and Hyperglycemia-related Irr itability: - Emotional disturbances discussed, advi sing supportive familial dialogue and stress management to reduce hyperglycemia-induced irritability. cont to us ehydroxyzine 4. Perceived Post-COVID Cough: - Consider chronic post-COVID cough migh t benefit from Flonase to address possible post-nasal drips, without current signs of acute infection. 5. FMLA - currently on intermittent leav e. Asked about CHENTE. Advised against this. Rather use paid leave for intermittent leave, could consider short period of incapcity; do not think he needs leave. He will review w/ employer. RTO as scheduled, sooner PRN Total time spent caring for the patient today was 40 minutes. This includes time spent before the visit reviewing the chart, time spent during the visit, and time spent after the visit on documentation, reviewing laboratory results, diagnostic imaging, medications, performing a medically necessary evaluation, counseling on diagnoses, care coordination, ordering appropriate tests, ordering appropriate medications, review of tests performed by other providers, reporting test results with the patient, communication with other healthcare providers. 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 1. Little interest or pleasure in doing things: more than half the days 2. Feeling down, depressed, or hopeless: more than half the days 3. Trouble falling or staying asleep, or sleeping too much: nearly every day 4. Feeling tired or having little energy: more than half the days 5. Poor appetite or overeating: nearly every day 6. Feeling bad about yourself - or that you are a failure or have let yourself or your family down: not at all 7. Trouble concentrating on things, such as reading the newspaper or watching television: not at all 8. Moving or speaking so slowly that other people could have noticed. Or the opposite - being so fidgety or restless that you have been moving around a lot more than usual: not at all 9. Thoughts that you would be better off or of hurting yourself in some way: not at all Total score: 12 51601 - PHQ-9 Billing: Yes Source: Developed by Drs. Dereje Carolina, Clarice Weber, Maicol To and colleagues, with an educational karloyn from [employer]. Thrive Questionnaire Date Thrive assessed: 07/29/24 I am a: Patient What is your living situation today?: I have a steady place to live Within the past 12 months, did the food you bought not last and you didn't have the money to get more?: Never true Within the past 12 months, did you worry whether your food would run out before you got money to buy more?: Never true Do you have trouble paying for medicines?: No Do you have trouble getting transportation to medical appointments?: No Do you have trouble paying your heating and electricity bill?: No Do you have trouble taking care of your child, family member or friend?: No Do you have trouble with day-to-day activities such as bathing, preparing meals, shopping, managing finances, etc.?: Yes Are you currently unemployed and looking for a job?: No Are you interested in more education?: No Please select the resources that you would like help with: None Currently or been in a relationship where the following occur: No concerns reported THRIVE Score: 0 AUDIT C Alcohol Use Questionnaire (AUDIT-C) 1. How often do you have a drink containing alcohol?: Monthly or less Total Score: 1 OLIVER-7 AMB Questionnaire OLIVER-7 Date OLIVER - 7 assessed: 07/29/24 Feeling nervous, anxious, or on edge: 2 = More than half the days Not being able to stop or control worryin = More than half the days Worrying too much about different things: 2 = More than half the days Trouble relaxin = More than half the days Being so restless that it is hard to sit still: 3 = Nearly every day Becoming easily annoyed or irritable: 3 = Nearly every day Feeling afraid as if something awful might happen: 2 = More than half the days Total OLIVER-7 score (0-4 normal; 5-9 mild; 10-14 moderate; 15-21 severe): 16 Source: Developed by Drs. Dereje Carolina, Clarice Weber, Maicol To and colleagues, with an educational karolyn from [employer]. OLIVER-7 Assessment Billing OLIVER-7 Assessment Tool: OLIVER-7 Assessment 87882 Physical exam (Primary Care) Vital Signs: Last Vital Signs Temp 98.3 F 07/29/24 09:14 Pulse 89 07/29/24 09:14 BP 128/64 07/29/24 09:14 Pulse Ox 98 07/29/24 09:14 Oxygen Delivery Method Room Air 07/29/24 09:14 BMI result Body Mass Index 22.8 Tobacco/Smoking Status: Tobacco use Status Tobacco use date assessed 07/29/24 07/29/24 09:30 Patient Tobacco Use Status Never used Tobacco 07/29/24 09:08 e-Cigarette/Vaping Use Never Used 07/29/24 09:08 PHQ-9: PHQ-9 Score PHQ-9: Total score 12 07/29/24 09:31 Thrive Assessment: Date of Thrive Assessment Date Thrive assessed 07/29/24 07/29/24 09:31 Currently or been in a relationship where the following occur: No concerns reported Office Procedures Glucose Monitoring Details Details: GMI 14 day 7%, 30 day 7.2%, 90 day 7.3% 14 day: 6% very high 24% high 67%in range 3% low 0 very low 204 at time of visit 18027 - Glucose monitoring, continuous-physician I&R Procedure code (CPT) selection complete Coding Level of Care Code Est Pt Level 5 (27633) Complex EM visit Add On G2211 Diagnoses Hospital discharge follow-up Z09 Type 1 diabetes mellitus with complication, with long-term current use of insulin E10.8 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 T80.89XA; E65 OLIVER (generalized anxiety disorder) F41.1 Post-COVID chronic cough R05.3; U09.9 CPT Codes Details - CPT: 39288 - Glucose monitoring, continuous-physician I&R ([id number]) Additional Codes OLIVER-7 Assessment Billing - OLIVER-7 Assessment Tool: OLIVER-7 Assessment 86436 ([id number]) PHQ-9 - 97773 - PHQ-9 Billing: Yes ([id number]) Assessment & Plan Assessment & Plan (1) Hospital discharge follow-up: Code(s): Z09 - Encounter for follow-up examination after completed treatment for conditions other than malignant neoplasm (2) Type 1 diabetes mellitus with complication, with long-term current use of insulin: Code(s): E10.8 - Type 1 diabetes mellitus with unspecified complications Category: Medical (3) 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: Code(s): T80.89XA - Other complications following infusion, transfusion and therapeutic injection, initial encounter; E65 - Localized adiposity Category: Medical (4) OLIVER (generalized anxiety disorder): Code(s): F41.1 - Generalized anxiety disorder Category: Medical (5) Post-COVID chronic cough: Code(s): R05.3 - Chronic cough; U09.9 - Post COVID-19 condition, unspecified Category: Medical Plan . Medications: New fluticasone furoate 27.5 mcg/actuation (Flonase Sensimist) into each nostril 1 spray intranasal DAILY 5.9 mL 0RF Patient Instructions: PFML not disability Not CHENTE Not continuous leave State pay - Rotate insulin injection sites away from current scarred areas to enhance absorption. - Consider using longer needles for injections where indicated. - Continue to monitor blood sugar levels closely and report any significant changes. - Use Flonase nasal spray twice daily for persistent post-COVID cough symptoms. - Remain communicative with family, especially regarding mood and irritability related to blood sugar levels. - Set up access to the patient portal using the emailed link for efficient communication and prescription updates.
[2024-07-29 09:14] VITALS: BP 128/64; PULSE 89; TEMP 36.8; O2SAT 98; BMI 22.8
== END 2024-07-29 09:39 | disposition home or self-care (01) ==
LOC: HO.HMCFM 09:08
PROVIDERS: PCP Nurse Practitioner Family; Visit Provider Nurse Practitioner Family
DX: E10.8 Type 1 diabetes mellitus with unspecified complications (principal); R05.3 Chronic cough; U09.9 Post COVID-19 condition, unspecified; Z09 Encounter for follow-up examination after completed treatment for conditions other than malignant neoplasm; T80.89XA Other complications following infusion, transfusion and therapeutic injection, initial encounter; E65 Localized adiposity; F41.1 Generalized anxiety disorder

== ENCOUNTER → 2024-07-29 09:07 | Outpatient (BNVA) | payer OTHER, SELFPAY | PROVIDERS: PCP Nurse Practitioner Family; Visit Provider Nurse Practitioner Family | DX: Z09 Encounter for follow-up examination after completed treatment for conditions other than malignant neoplasm (principal); E10.8 Type 1 diabetes mellitus with unspecified complications; T80.89XA Other complications following infusion, transfusion and therapeutic injection, initial encounter; E65 Localized adiposity; F41.1 Generalized anxiety disorder; R05.3 Chronic cough; U09.9 Post COVID-19 condition, unspecified | CPT/HCPCS: 96127 ==

== ENCOUNTER 2024-09-10 09:13 | Outpatient (REF) | payer OTHER, SELFPAY | END 2024-09-10 09:14 | disposition home or self-care (01) | LOC: HO.LAB 09:13 | PROVIDERS: PCP Nurse Practitioner Family; Visit Provider Nurse Practitioner Family | DX: E10.8 Type 1 diabetes mellitus with unspecified complications (principal); L98.9 Disorder of the skin and subcutaneous tissue, unspecified; E10.3293 Type 1 diabetes mellitus with mild nonproliferative diabetic retinopathy without macular edema, bilateral; T80.89XA Other complications following infusion, transfusion and therapeutic injection, initial encounter; E65 Localized adiposity; F51.05 Insomnia due to other mental disorder; F41.1 Generalized anxiety disorder | CPT/HCPCS: 96127 ==

== ENCOUNTER 2024-09-10 09:13 | Outpatient (AMB) | payer OTHER, SELFPAY ==
--- NOTE | 2024-09-10 09:17 | A.OFFPC_ITS ---
Vital Signs 3 09/10/24 09:22 Height 6 ft 1 in Weight 185 lb 6 oz BMI 24.5 BP 122/72 Blood Pressure Location Lt brachial Position Sitting Respiration 12 Pulse 86 Pulse Source Pulse Oximeter Temp 97.5 F Temp Source Oral Pulse Oximetry (%) 98 Oxygen Delivery Method Room Air Intake Visit Reasons: 6 mo 30 min routine f/u Intake Note: Routine follow up Customer Success Intern Required: No Allergies amoxicillin Allergy (Mild, Verified 09/10/24 09:18) Hives penicillin V Allergy (Mild, Verified 09/10/24 09:18) Hives Medication List - Last Reconciled 09/10/24 by Kathy Sotomayor, HELP DESK REPRESENTATIVE- blood-glucose sensor (Dexcom G7 Sensor device) DIRECTED CHANGE EVERY 10 DAYS fluticasone furoate 27.5 mcg/actuation (Flonase Sensimist) 1 spray intranasal DAILY glucagon 3 mg/actuation (Baqsimi) 3 mg intranasal ONCE hydroxyzine HCl 10 mg PO TID insulin glargine (Basaglar KwikPen U-100 Insulin) 36 units (0.36 mL) subcut BID insulin lispro (Humalog KwikPen (U-100) Insulin) 1 unit for every 10 grams of carbohydrates subcutaneously 3 times a d subcutaneously 3 times a day; meloxicam 7.5 mg PO DAILY Tobacco use date assessed: 07/29/24 Dental Screening Dental Screen Date: 07/29/24 HPI HPI Comments 2 History of Present Illness0 Details 33 y/o M with IDDM with complications, m ild nonproliferative diabetic retinopathy, MDD,OLIVER, family hx of addiction, OLIVER, insomnia Health Maintenance: DME 04/2021, reports he has annual visits. Asked him to get me these reports; has a diabetic eye exam scheduled in 05/2024 @ [facility]. Tdap 03/12/24 Flu 2023 History of Present Illness - The patient is a 33-year-old male pres enting for a routine follow-up for Type 1 Diabetes Mellitus. - His past medical condition is signific ant for Type 1 Diabetes with mild non- proliferative diabetic retinopathy. A1c level of 6.5%.07/30/24 done by Endo - using CGM and insulin. Blood glucose c ontrol has improved w/ site rotation. - FMLA active. Using appropriatley. No h ospital visits. - The patient has anxiety and depression , reporting improved mood by maintaining a regular sleep schedule. - He has not required hydroxyzine recent ly, indicative of improvements in managing anxiety. - History of urine testing showed no kassi roalbuminuria since July 2022. Repeat today also normal - The patient reports a chronic cough garcia spected to be a result of postnasal drip, worsening at night but generally not troublesome. Did not trial flonase. A small, non-painful bump noted on the left internal ankle, present for approximately two years. Wonders if he has celiac; does not have any sx related to eating gluten. Physical Exam General: Well developed, well nourished, in no acute distress. Appears stated age. Head: Normocephalic, atraumatic. Eyes: Pupils are equal, round and reactive to light and accommodation. Conjunctivae are clear. Lungs: Clear to auscultation bilaterally. No rales, rhonchi or wheeze noted. Good air flow in all samuels. Heart: Regular rate and rhythm. No murmurs, click, rubs or gallops are noted.. Pulses: Peripheral pulses are equal and palpable bilaterally. Extremities: No clubbing, cyanosis nor edema is noted. Inside L ankle - see below. Psych: Mood and affect appropriate, with noted improvements in stress management and sleep patterns. Discussion Notes During the consultation, we reviewed the patient's management of Type 1 Diabetes Mellitus and commended the positive control marked by an A1c of 6.5%. We discussed the importance of site rotation for insulin and addressed the patient's concerns about potential hypoglycemia with insulin adjustments. We agreed on maintaining his current insulin regimen due to favorable control. The patient was reminded of the importance of regular retinal exams for diabetic retinopathy, and he reported a recent retinal assessment from May. We highlighted the significance of annual microalbuminuria screenings, given baseline normoalbuminuria. Counseling on sleep hygiene was reviewed, reaffirming its role in stress management without hydroxyzine use. The patient was advised regarding non-pharmacological interventions for his chronic cough and was instructed regarding the option of using Flonase for presumed postnasal drip. For suspected skin concerns on his ankle, a dermatological referral was deemed appropriate. We finalized the visit by arranging a follow-up in six months with concurrent laboratory assessments, emphasizing the utility of real-time patient portal access for laboratory results. Assessment and Plan 1. Type 1 Diabetes Mellitus with Mild No n-Proliferative Diabetic Retinopathy We will continue the current management with insulin and support ongoing site rotation practices to mitigate resistance. Retinal surveillance remains a priority. Cont care w/ Endo 2. Anxiety and Depression The patient will maintain his current sleep strategy. Psychological wellbeing will continue to be monitored, with hydroxyzine available if necessary. 3. Chronic Cough Suggested the use of Flonase for postnasal drip. 4. Routine Labs and Preventive Health Various preventive health labs will be performed, with ease for direct access to results through the patient portal. 5. Skin Concerns A dermatology referral is initiated for persistent ankle lesion evaluation and possible biopsy. Patient Instructions - Continue current insulin regimen and s ite rotation as discussed. - Maintain regular sleep pattern to supp ort mood and stress management. - Use Flonase for nighttime cough if bot hersome. - Proceed with lab work today; check res ults on the patient portal. - Contact and follow-up with dermatology regarding the ankle lesion. - RTO 6 months Dec for FMLA re-cert Consent Patient was informed and verbally consented to the use of an ambient scribe for clinic note documentation during this visit. Total time spent caring for the patient today was 40 minutes. This includes time spent before the visit reviewing the chart, time spent during the visit, and time spent after the visit on documentation, reviewing laboratory results, diagnostic imaging, medications, performing a medically necessary evaluation, counseling on diagnoses, care coordination, ordering appropriate tests, ordering appropriate medications, review of tests performed by other providers, reporting test results with the patient, communication with other healthcare providers. Left internal ankle: [facility] Medical History (Updated 09/10/24 @ 09:53 by Kathy Sotomayor, [facility]) No pertinent past medical history Type 1 diabetes mellitus Surgical History History of surgery on arm Family History Mother Migraine headache Father Acute alcohol abuse Other Mental health disorder Substance abuse Social History Housing: House Alcohol intake: current Alcohol intake frequency: a few times a week Patient Tobacco Use Status: Never used Tobacco e-Cigarette/Vaping Use: Never Used Second Hand Smoke Exposure: No service: No Current occupational status: employed 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 Current occupational exposures/hazards: No Cognitive needs: Yes Hearing needs: No Vision needs: No Questionnaire PHQ-9 Over the last 2 weeks, how often have you been bothered by any of the following problems? 1. Little interest or pleasure in doing things: not at all 2. Feeling down, depressed, or hopeless: not at all 3. Trouble falling or staying asleep, or sleeping too much: not at all 4. Feeling tired or having little energy: not at all 5. Poor appetite or overeating: not at all 6. Feeling bad about yourself - or that you are a failure or have let yourself or your family down: not at all 7. Trouble concentrating on things, such as reading the newspaper or watching television: not at all 8. Moving or speaking so slowly that other people could have noticed. Or the opposite - being so fidgety or restless that you have been moving around a lot more than usual: not at all 9. Thoughts that you would be better off or of hurting yourself in some way: not at all Total score: 0 Depression Screening Interpretation: Negative Depression Screening Done: Yes 24922 - PHQ-9 Billing: Yes Source: Developed by Drs. Dereje Carolina, Clarice Weber, Maicol To and colleagues, with an educational karolyn from [employer]. Thrive Questionnaire Date Thrive assessed: 09/10/24 I am a: Patient What is your living situation today?: I have a steady place to live Within the past 12 months, did the food you bought not last and you didn't have the money to get more?: Never true Within the past 12 months, did you worry whether your food would run out before you got money to buy more?: Never true Do you have trouble paying for medicines?: No Do you have trouble getting transportation to medical appointments?: No Do you have trouble paying your heating and electricity bill?: No Do you have trouble taking care of your child, family member or friend?: No Do you have trouble with day-to-day activities such as bathing, preparing meals, shopping, managing finances, etc.?: Yes Are you currently unemployed and looking for a job?: No Are you interested in more education?: No Please select the resources that you would like help with: None Currently or been in a relationship where the following occur: No concerns reported THRIVE Score: 0 OLIVER-7 AMB Questionnaire OLIVER-7 Date OLIVER - 7 assessed: 09/10/24 Feeling nervous, anxious, or on edge: 0 = Not at all Not being able to stop or control worryin = Not at all Worrying too much about different things: 0 = Not at all Trouble relaxin = Not at all Being so restless that it is hard to sit still: 0 = Not at all Becoming easily annoyed or irritable: 0 = Not at all Feeling afraid as if something awful might happen: 0 = Not at all Total OLIVER-7 score (0-4 normal; 5-9 mild; 10-14 moderate; 15-21 severe): 0 Source: Developed by Drs. Dereje Carolina, Clarice Weber, Maicol To and colleagues, with an educational karolyn from [employer]. OLIVER-7 Assessment Billing OLIVER-7 Assessment Tool: OLIVER-7 Assessment 63200 Physical exam (Primary Care) Vital Signs: Last Vital Signs Temp 97.5 F 09/10/24 09:22 Pulse 86 09/10/24 09:22 Resp 12 09/10/24 09:22 BP 122/72 09/10/24 09:22 Pulse Ox 98 09/10/24 09:22 Oxygen Delivery Method Room Air 09/10/24 09:22 BMI result Body Mass Index 24.5 Tobacco/Smoking Status: Tobacco use Status Tobacco use date assessed 07/29/24 09/10/24 09:23 Patient Tobacco Use Status Never used Tobacco 09/10/24 09:23 e-Cigarette/Vaping Use Never Used 09/10/24 09:23 PHQ-9: PHQ-9 Score PHQ-9: Total score 0 09/10/24 09:39 Depression Screening Interpretation: Negative Thrive Assessment: Date of Thrive Assessment Date Thrive assessed 09/10/24 09/10/24 09:23 Currently or been in a relationship where the following occur: No concerns reported Coding Level of Care Code Est Pt Level 5 (13244) Complex EM visit Add On G2211 Diagnoses Type 1 diabetes mellitus with complication, with long-term current use of insulin E10.8 Skin lesion L98.9 Mild nonproliferative diabetic retinopathy of both eyes associated with type 1 diabetes mellitus, macular edema presence unspecified E10.3293 Diabetes mellitus type: type 1 Diabetic retinopathy severity: with mild nonproliferative retinopathy Diabetes mellitus macular edema: macular edema presence unspecified Laterality: bilateral 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.89XA; E65 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 OLIVER (generalized anxiety disorder) F41.1 Additional Codes OLIVER-7 Assessment Billing - OLIVER-7 Assessment Tool: OLIVER-7 Assessment 97810 ([id number]) PHQ-9 - 58251 - PHQ-9 Billing: Yes ([id number]) Assessment & Plan Assessment & Plan (1) Type 1 diabetes mellitus with complication, with long-term current use of insulin: Code(s): E10.8 - Type 1 diabetes mellitus with unspecified complications Category: Medical (2) Skin lesion: Code(s): L98.9 - Disorder of the skin and subcutaneous tissue, unspecified Category: Medical (3) Diabetic retinopathy: Code(s): E11.319 - Type 2 diabetes mellitus with unspecified diabetic retinopathy without macular edema Category: Medical Qualifiers: Diabetes mellitus type: type 1 Diabetic retinopathy severity: with mild nonproliferative retinopathy Diabetes mellitus macular edema: macular edema presence unspecified Laterality: bilateral Qualified Code(s): E10.3293 - Type 1 diabetes mellitus with mild nonproliferative diabetic retinopathy without macular edema, bilateral (4) 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: Code(s): T80.89XA - Other complications following infusion, transfusion and therapeutic injection, initial encounter; E65 - Localized adiposity Category: Medical (5) Insomnia due to mental disorder: Code(s): F51.05 - Insomnia due to other mental disorder Category: Medical (6) OLIVER (generalized anxiety disorder): Code(s): F41.1 - Generalized anxiety disorder Category: Medical Plan . Orders: Orders 2 Complete Blood Count no Diff 09/10/24 E10.8 - Type 1 diabetes mellitus with unspecified complications Lipid Panel 09/10/24 E10.8 - Type 1 diabetes mellitus with unspecified complications Vitamin D 25-OH Total 09/10/24 E10.8 - Type 1 diabetes mellitus with unspecified complications Microalbumin, Random (w Creat) 09/10/24 E10.8 - Type 1 diabetes mellitus with unspecified complications Comprehensive Met. Panel 09/10/24 E10.8 - Type 1 diabetes mellitus with unspecified complications TSH reflex Free T4 09/10/24 E10.8 - Type 1 diabetes mellitus with unspecified complications Vitamin B12 and Folate 09/10/24 E10.8 - Type 1 diabetes mellitus with unspecified complications Celiac Disease Panel 09/10/24 E10.8 - Type 1 diabetes mellitus with unspecified complications Referrals 2 Dermatology Referral L98.9 - Disorder of the skin and subcutaneous tissue, unspecified
[2024-09-10 09:22] VITALS: BP 122/72; PULSE 86; RESP 12; TEMP 36.4; O2SAT 98; BMI 24.5
== END 2024-09-10 09:57 | disposition home or self-care (01) ==
LOC: HO.HMCFM 09:14
PROVIDERS: PCP Nurse Practitioner Family; Visit Provider Nurse Practitioner Family
DX: E10.8 Type 1 diabetes mellitus with unspecified complications (principal); E10.3293 Type 1 diabetes mellitus with mild nonproliferative diabetic retinopathy without macular edema, bilateral; L98.9 Disorder of the skin and subcutaneous tissue, unspecified; T80.89XA Other complications following infusion, transfusion and therapeutic injection, initial encounter; E65 Localized adiposity; F51.05 Insomnia due to other mental disorder; F41.1 Generalized anxiety disorder

== ENCOUNTER 2024-09-10 10:09 | Outpatient (REF) | payer OTHER, SELFPAY ==
[2024-09-10 14:24] LABS: Hemoglobin 14.7 g/dl (14.0-18.0); Mean Corpuscular HGB Conc 34.2 g/dl (31.0-36.0); Mean Corpuscular Hemoglobin 30.6 pg (27.0-33.0); Mean Corpuscular Volume 89.6 fL (80.0-98.0); Platelet Count 307 X10*3/uL (160-400); Red Cell Distribution Width 12.6 % (11.0-16.0); White Blood Count 6.7 X10*3/uL (4.8-10.8)
[2024-09-10 14:48] LABS: Alanine Aminotransferase 34 U/L (0-40); Albumin Level 4.5 g/dL (3.5-5.0); Alkaline Phosphatase 36 U/L (39-117); Anion Gap 10 (12-20); Aspartate Amino Transferase 28 U/L (5-37); Bilirubin Total 0.5 mg/dL (0.0-1.0); Blood Urea Nitrogen 16 mg/dL (9-16); Calcium 9.9 mg/dL (8.4-10.2); Carbon Dioxide 28 mmol/L (22-29); Chloride 105 mmol/L (96-108); Cholesterol 199 mg/dL (<200); Estimated Glomerular Filt Rate > 60; Glucose Random 102 mg/dL (60-115); HDL Cholesterol 44 mg/dL (>40); LDL Cholesterol Calculated 141 mg/dL (<100); Potassium 3.9 mmol/L (3.3-5.1); Sodium 139 mmol/L (135-145); Total Protein 7.4 g/dL (6.5-8.0); Triglycerides 73 mg/dL (<150)
[2024-09-10 14:54] LABS: TSH reflex Free T4 2.43 uIU/mL (0.32-4.0); Vitamin D 25-OH Total 49.9 ng/mL (>30)
[2024-09-10 14:59] LABS: Creatinine Urine 72.73 mg/dL; Microalbumin Urine < 5.0 mg/L
[2024-09-10 15:06] LABS: Folate 5.7 ng/mL (> or = 4.0); Vitamin B12 455 pg/mL (200-900)
[2024-09-11 13:54] LABS: Immunoglobulin A 145 mg/dL (47-310); Transglutaminase IgA <1.0 U/mL
== END 2024-09-10 10:10 | disposition home or self-care (01) ==
LOC: HO.WFDLDS 10:09
PROVIDERS: Visit Provider Nurse Practitioner Family
DX: E10.8 Type 1 diabetes mellitus with unspecified complications (principal)
CPT/HCPCS: 36415; 80053; 80061; 82306; 82570; 82607; 82746; 82784; 84443; 85027; 86364

== ENCOUNTER 2025-03-18 09:21 | Outpatient (AMB) | payer OTHER, SELFPAY ==
--- NOTE | 2025-03-18 09:26 | A.OFFPC_ITS ---
Vital Signs 3 03/18/25 09:29 03/18/25 09:56 Height 6 ft 1 in Weight 185 lb 6 oz BMI 24.5 BP 132/74 Blood Pressure Location Lt brachial Position Sitting Respiration 13 Pulse 105 H 88 Pulse Source Pulse Oximeter Auscultation Temp 97.5 F Temp Source Oral Pulse Oximetry (%) 99 Oxygen Delivery Method Room Air Intake Visit Reasons: 6 months CPE Intake Note: CPE [employer] Required: No Allergies amoxicillin Allergy (Mild, Verified 03/18/25 09:33) Hives penicillin V Allergy (Mild, Verified 03/18/25 09:33) Hives Medication List - Last Reconciled 03/18/25 by Kathy Sotomayor, PRIVATE DUTY LPN- blood-glucose sensor (Dexcom G7 Sensor device) DIRECTED CHANGE EVERY 10 DAYS fluticasone furoate 27.5 mcg/actuation (Flonase Sensimist) 1 spray intranasal DAILY glucagon 3 mg/actuation (Baqsimi) 3 mg intranasal ONCE hydroxyzine HCl 10 mg PO TID insulin glargine (Basaglar KwikPen U-100 Insulin) 36 units (0.36 mL) subcut BID insulin lispro (Humalog KwikPen (U-100) Insulin) 1 unit for every 10 grams of carbohydrates subcutaneously 3 times a d subcutaneously 3 times a day; meloxicam 7.5 mg PO DAILY rosuvastatin 20 mg PO BEDTIME Tobacco use date assessed: 03/18/25 Dental Screening Dental Screen Date: 03/18/25 Did you have a dental visit in the last 12 months?: Yes Did you have a dental problem in the last 6 months where you did not have access to dental care?: No Was dental information given to patient?: Patient has dentist HPI HPI Comments 2 History of Present Illness0 Details 34 y/o M with IDDM with complications, m ild nonproliferative diabetic retinopathy, MDD,OLIVER, family hx of addiction, OLIVER, insomnia s/p tooth extractions 2024 Fhx: No changes Social: same job; lives w/ girlfriend Health Maintenance: DME 04/2021, reports he has annual visits. Asked him to get me these reports; has a diabetic eye exam scheduled in 05/2024 @ [facility]. Tdap 03/12/24 Flu 03/18/2025 Specialists: Optho, wears glasses Endo DM Educator Counselor - did not pursue Derm History of Present Illness The patient is a 34-year-old male presenting for a complete physical exam and to discuss a recently prescribed cholesterol medication. Type 1 Diabetes Mellitus: - The patient has type 1 diabetes with a complication of mild nonproliferative diabetic retinopathy and is managed by endocrinology. - His last A1c in November was between 6 and 7 in November 2024 @ Endo. - His current medications include Lispro , glargine (Lantus), and a Dexcom G7 continuous glucose monitor. - He is currently adjusting his insulin regimen to address nocturnal hyperglycemia, trying different split doses of Lantus and adjusting his nighttime carbohydrate ratio to 1:8, which has sometimes resulted in hypoglycemia. - His last diabetic eye exam was in [facility], and he is due for his annual screening & would like to see a new eye group (was @ [facility]) Hyperlipidemia: - The patient was recently prescribed ro suvastatin for high cholesterol by his boat painter after labs in September showed an LDL of 144. - He has not started taking the medicati on, as he would prefer to first attempt modifications to his diet and exercise. Anxiety: - The patient has a history of anxiety a nd is prescribed hydroxyzine for as- needed use. - He reports using it very sparingly, ab out twice since his last visit, with one recent use for anxiety related to job interviews, which helped him sleep. - His overall mood is reported to be aissatou y good. Shoulder Pain: - The patient has a history of shoulder pain, for which he takes meloxicam as needed. History of postnasal drip and chronic cough: - The patient has a history of postnasal drip and chronic cough, for which he uses Flonase. - He reports that he has not had the cou gh recently and is not currently using the Flonase. Dental History: - The patient recently had two wisdom te eth extracted and other dental work completed about a month and a half ago. - He reports the area is 80% better but he still experiences significant sensitivity to temperature and pressure, making it difficult to chew on that side. - He has one or two cavities on the cont ralateral side that need to be addressed. - The patient is dissatisfied with his r [facility] dental experience and is looking for a new dentist. Past Medical History - Type 1 diabetes with mild nonprolifera tive diabetic retinopathy - Anxiety - Shoulder pain - Postnasal drip and chronic cough - Hyperlipidemia Past Surgical History - Recent extraction of two wisdom teeth Family History - No changes to family medical history w ere reported. 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 - Living Situation: He lives with his gi rlfriend and reports feeling very safe at home. - Nutrition: The patient expressed a owen hiro to discuss diet as part of managing his cholesterol. - Weight Management: The patient's weigh t is stable at 185 lbs. Review of Systems - General: Reports feeling his mood is super great. Reports stable weight, but subjectively feels a little fat. - HEENT: Reports recent dental work with extraction of two wisdom teeth, with residual pain, sensitivity to hot and cold, and difficulty chewing on that side. He reports needing to have one or two cavities on the other side addressed. - Respiratory: Denies recent cough. - Musculoskeletal: Reports a history of shoulder pain. - GI/: Reports normal bowel and bladde r function. - Skin: Notes a lesion on his ankle is u nchanged. - Psychiatric: Reports good overall mood . Reports using PRN hydroxyzine for anxiety sparingly, approximately twice since last visit. Physical Exam General: Well developed, well nourished, in no acute distress. Appears stated age. Head: Normocephalic, atraumatic. Eyes: Pupils are equal, round and reactive to light and accommodation. Conjunctivae are clear. Scleras nonicteric bilat. Vision grossly normal. Ears: TMs intact AU, EACS WNL. Tiny bit of congestion noted, fluid behind the eardrums. Nose: Patent, without discharge. No postnasal drip noted currently. Neck: No carotid bruit bilat. Supple, no adenopathy or thyromegaly. Breast: Edu on SBE Lungs: Clear to auscultation bilaterally. No rales, rhonchi or wheeze noted. Good air flow in all samuels. Heart: Regular rate and rhythm. No murmurs, click, rubs or gallops are noted. Abdomen: Bowel sounds present in all quadrants. The abdomen is soft, nontender, with no masses or organomegaly noted. No hernias are noted. : Deferred. Reviewed GWYN & recommendations Pulses: Peripheral pulses are equal and palpable bilaterally. Extremities: No clubbing, cyanosis nor edema is noted. Neurologic: Gait and station normal. Cranial Nerves 2-12 intact. Motor strength grossly symmetrical and intact. No sensory loss. Balance normal. Skin: No rashes, ulcers, or lesions noted. Turgor is good. Skin color is good. Hair and nails are without abnormalities. Benign or normal appearing moles on the back. L ankle see below Psych: Normal eye contact, affect and mood appropriate, and normal interactions. Patient is alert and appropriate to context. History of anxiety, uses PRN hydroxyzine sparingly. Mood overall is good. Left internal ankle: Results - Labs (September): LDL cholesterol was 144. A CBC and CMP were completely normal. - Labs (November): A1c was between 6 and 7. - Tests: A diabetic foot exam with mamta diop was completed in November and was normal. Medical Decision Making The patient is a 34-year-old male with a history of type 1 diabetes presenting for a complete physical exam. His primary concern is a recent prescription for rosuvastatin for hyperlipidemia, which was based on an LDL of 145 in September. The patient is hesitant to begin pharmacotherapy and prefers to first attempt lifestyle modifications, including diet and exercise, which is a reasonable approach given his age. To support this, a referral will be placed to a director of agriculture with whom he has had a positive prior experience. A repeat lipid panel will be checked today to monitor the trend and to provide the director of agriculture with current data. Other labs from September, including a CBC and CMP, were normal and do not require repeating. In terms of health maintenance, the patient is due for his annual diabetic eye exam. Due to a negative experience with his previous provider, a referral will be placed to a new corporate manager. He also has a pending dermatology referral for an ankle lesion which he will be encouraged to schedule. He will receive his influenza vaccine today. The patient's type 1 diabetes is actively managed with endocrinology, and he is currently working on titrating his insulin regimen to control nocturnal hyperglycemia. His anxiety is well-controlled with sparing use of PRN hydroxyzine. Follow-up is planned in 6 months to review progress. Plan Health Maintenance - Diabetic Eye Exam: The patient is due for his annual exam and a referral will be placed to a new provider, Dr. Kaela Alonzo, due to dissatisfaction with his previous eye doctor. - Skin Exam: An open referral to dermato logy for an ankle lesion is still active, and the patient needs to schedule the appointment. - Immunizations: The patient will receiv e an influenza vaccine today. - Nutritional Counseling: A referral ananya l be placed for the patient to see a director of agriculture, Evy, to discuss diet for diabetes and hyperlipidemia management. - Wellness Visit: The patient presented for an annual physical exam. 1. Annual Physical Exam - Recheck lipid panel today. - Administer influenza vaccine. - Follow-up visit scheduled for 6 months . 2. Type 1 Diabetes Mellitus - Patient to continue management with en docrinology. - Place internal referral to katia maier (Evy) for dietary counseling. - Provide patient with printed referral for a new eye care provider (Dr. Yee) for his annual diabetic eye exam. 3. Hyperlipidemia - Patient has chosen to defer starting r osuvastatin and will trial lifestyle modifications first. - Will recheck lipid panel today to yoshi lópez and assist with nutritional counseling. 4. Anxiety - Patient reports condition is well-ludmila ged with very infrequent use of PRN hydroxyzine. - Continue current management. 5. Ankle Lesion, L - Provide patient with the printed, pre- existing referral to dermatology to facilitate scheduling an appointment for evaluation. Patient Instructions - You will receive your flu shot today. - Please go to the lab to have your chol esterol levels checked today. It is fine that you only had coffee this morning. - At the hotel front desk clerk, ask for the printed referrals for the eye doctor and the oil recovery operator (skin doctor). You will need to call them to schedule your appointments. - Our office will refer you to the Evy lowry, and her office will call you to schedule an appointment. - Please schedule your next follow-up ap pointment for six months from now. - For your disability ([place]) paperwo rk, drop the forms off at the hotel front desk clerk and schedule a telehealth appointment at the same time so we can fill them out together. Consent The patient verbally consented to receive the influenza vaccine during today's visit. Patient was informed and verbally consented to the use of an ambient scribe for clinic note documentation during this visit. [facility] Medical History (Updated 03/18/25 @ 10:00 by Kathy Sotomayor, PRIVATE DUTY LPN-BC) No pertinent past medical history Type 1 diabetes mellitus Surgical History History of surgery on arm Family History Mother Migraine headache Father Acute alcohol abuse Other Mental health disorder Substance abuse Social History Housing: House Alcohol intake: current Alcohol intake frequency: a few times a week Patient Tobacco Use Status: Never used Tobacco e-Cigarette/Vaping Use: Never Used Second Hand Smoke Exposure: No service: No Current occupational status: employed Current occupation: [employer] Current occupational exposures/hazards: No Cognitive needs: Yes Hearing needs: No Vision needs: No Questionnaire PHQ-9 Over the last 2 weeks, how often have you been bothered by any of the following problems? 1. Little interest or pleasure in doing things: not at all 2. Feeling down, depressed, or hopeless: not at all 3. Trouble falling or staying asleep, or sleeping too much: not at all 4. Feeling tired or having little energy: not at all 5. Poor appetite or overeating: not at all 6. Feeling bad about yourself - or that you are a failure or have let yourself or your family down: not at all 7. Trouble concentrating on things, such as reading the newspaper or watching television: not at all 8. Moving or speaking so slowly that other people could have noticed. Or the opposite - being so fidgety or restless that you have been moving around a lot more than usual: not at all 9. Thoughts that you would be better off or of hurting yourself in some way: not at all Total score: 0 Depression Screening Interpretation: Negative Depression Screening Done: Yes 62146 - PHQ-9 Billing: Yes Source: Developed by Drs. Dereje Carolina, Clarice Weber, Maicol To and colleagues, with an educational karolyn from [employer]. Thrive Questionnaire Date Thrive assessed: 03/18/25 I am a: Patient What is your living situation today?: I have a steady place to live Within the past 12 months, did the food you bought not last and you didn't have the money to get more?: Never true Within the past 12 months, did you worry whether your food would run out before you got money to buy more?: Never true Do you have trouble paying for medicines?: No Do you have trouble getting transportation to medical appointments?: No Do you have trouble paying your heating and electricity bill?: No Do you have trouble taking care of your child, family member or friend?: No Do you have trouble with day-to-day activities such as bathing, preparing meals, shopping, managing finances, etc.?: Yes Are you currently unemployed and looking for a job?: No Are you interested in more education?: No Please select the resources that you would like help with: None Currently or been in a relationship where the following occur: No concerns reported THRIVE Score: 0 OLIVER-7 AMB Questionnaire OLIVER-7 Date OLIVER - 7 assessed: 03/18/25 Feeling nervous, anxious, or on edge: 0 = Not at all Not being able to stop or control worryin = Not at all Worrying too much about different things: 0 = Not at all Trouble relaxin = Not at all Being so restless that it is hard to sit still: 0 = Not at all Becoming easily annoyed or irritable: 0 = Not at all Feeling afraid as if something awful might happen: 0 = Not at all Total OLIVER-7 score (0-4 normal; 5-9 mild; 10-14 moderate; 15-21 severe): 0 Source: Developed by Drs. Dereje Carolina, Clarice Weber, Maicol To and colleagues, with an educational karolyn from [employer]. OLIVER-7 Assessment Billing OLIVER-7 Assessment Tool: OLIVER-7 Assessment 83869 Physical exam (Primary Care) Vital Signs: Last Vital Signs Temp 97.5 F 03/18/25 09:29 Pulse 88 03/18/25 09:56 Resp 13 03/18/25 09:29 BP 132/74 03/18/25 09:29 Pulse Ox 99 03/18/25 09:29 Oxygen Delivery Method Room Air 03/18/25 09:29 BMI result Body Mass Index 24.5 Tobacco/Smoking Status: Tobacco use Status Tobacco use date assessed 03/18/25 03/18/25 09:30 Patient Tobacco Use Status Never used Tobacco 03/18/25 09:30 e-Cigarette/Vaping Use Never Used 03/18/25 09:30 PHQ-9: PHQ-9 Score PHQ-9: Total score 0 03/18/25 09:31 Depression Screening Interpretation: Negative Thrive Assessment: Date of Thrive Assessment Date Thrive assessed 03/18/25 03/18/25 09:30 Currently or been in a relationship where the following occur: No concerns reported Office Procedures Flu Questionnaire Does the patient have a severe egg allergy?: No Does the patient have severe life threatening allergies?: No Does the patient have a fever or illness today?: No Has the patient ever had Guillain-Hilmar Syndrome?: No Has the patient ever had any past reaction to a flu shot?: No Immunizations Fluarix [id number] (PF) 45 mcg (15 mcg x 3)/0.5 mL IM syringe Performing Provider: GENO Geronimo Performing Location: [facility] Administered by: Herb Kirk MA on 03/18/25 09:57 2 Dose Route Admin Location Dispensed Lot Number Expiration Date [facility] Health Program Manager 0.5 mL IM Left Deltoid 0.5 mL [id number] 11/03/25 11173-659-41 Orbiter 2 VIS Given Date VIS Provided VIS Publication Date 03/18/25 Single Vaccine 24 Eligibility Eligibility Date Funding Source Not [facility] Eligible 03/18/25 Private Coding Level of Care Code Est Pt Prev Care [id number]([id number]) Diagnoses Encounter for general adult medical examination with abnormal findings Z00.01 Type 1 diabetes mellitus with complication, with long-term current use of insulin E10.8 Mild nonproliferative diabetic retinopathy of both eyes associated with type 1 diabetes mellitus, macular edema presence unspecified E10.3293 Diabetes mellitus type: type 1 Diabetic retinopathy severity: with mild nonproliferative retinopathy Diabetes mellitus macular edema: macular edema presence unspecified Laterality: bilateral Influenza vaccination administered at current visit Z23 Hyperlipidemia due to type 1 diabetes mellitus E10.69; E78.5 OLIVER (generalized anxiety disorder) F41.1 Skin lesion L98.9 Additional Codes OLIVER-7 Assessment Billing - OLIVER-7 Assessment Tool: OLIVER-7 Assessment 36512 ([id number]) PHQ-9 - 83017 - PHQ-9 Billing: Yes ([id number]) Assessment & Plan Assessment & Plan (1) Encounter for general adult medical examination with abnormal findings: Onset Date: ~03/18/25 Code(s): Z00.01 - Encounter for general adult medical examination with abnormal findings Category: Medical (2) Type 1 diabetes mellitus with complication, with long-term current use of insulin: Code(s): E10.8 - Type 1 diabetes mellitus with unspecified complications Category: Medical (3) Diabetic retinopathy: Code(s): E11.319 - Type 2 diabetes mellitus with unspecified diabetic retinopathy without macular edema Category: Medical Qualifiers: Diabetes mellitus type: type 1 Diabetic retinopathy severity: with mild nonproliferative retinopathy Diabetes mellitus macular edema: macular edema presence unspecified Laterality: bilateral Qualified Code(s): E10.3293 - Type 1 diabetes mellitus with mild nonproliferative diabetic retinopathy without macular edema, bilateral (4) Influenza vaccination administered at current visit: Onset Date: ~03/18/25 Code(s): Z23 - Encounter for immunization Category: Medical (5) Hyperlipidemia due to type 1 diabetes mellitus: Code(s): E10.69 - Type 1 diabetes mellitus with other specified complication; E78.5 - Hyperlipidemia, unspecified Category: Medical (6) OLIVER (generalized anxiety disorder): Code(s): F41.1 - Generalized anxiety disorder Category: Medical (7) Skin lesion: Code(s): L98.9 - Disorder of the skin and subcutaneous tissue, unspecified Category: Medical Plan . Orders: Orders 2 Influenza [id number] Immunization Today Z23 - Encounter for immunization Lipid Panel Today E10.8 - Type 1 diabetes mellitus with unspecified complications, E78.5 - Hyperlipidemia, unspecified Referrals 2 Virtual Classroom Manager Nutrition Referral E10.8 - Type 1 diabetes mellitus with unspecified complications, E78.5 - Hyperlipidemia, unspecified Ophthalmology Referral E10.3293 - Type 1 diabetes mellitus with mild nonproliferative diabetic retinopathy without macular edema, bilateral, E10.8 - Type 1 diabetes mellitus with unspecified complications Patient Instructions: Patient Instructions - You will receive your flu shot today. - Please go to the lab to have your cholesterol levels checked today. It is fine that you only had coffee this morning. - At the hotel front desk clerk, ask for the printed referrals for the eye doctor and the oil recovery operator (skin doctor). You will need to call them to schedule your appointments. - Our office will refer you to the director of agricultureEvy, and her office will call you to schedule an appointment. - Please schedule your next follow-up appointment for six months from now. - For your disability ([place]) paperwork, drop the forms off at the hotel front desk clerk and schedule a telehealth appointment at the same time so we can fill them out together. Health Maintenance - Diabetic Eye Exam: The patient is due for his annual exam and a referral will be placed to a new provider, Dr. Kaela Alonzo, due to dissatisfaction with his previous eye doctor. - Skin Exam: An open referral to dermatology for an ankle lesion is still active, and the patient needs to schedule the appointment. - Immunizations: The patient will receive an influenza vaccine today. - Nutritional Counseling: A referral will be placed for the patient to see a director of agriculture, Evy, to discuss diet for diabetes and hyperlipidemia management. - Wellness Visit: The patient presented for an annual physical exam. Health screenings for men You should visit your health care provider regularly, even if you feel healthy. The purpose of these visits is to: Screen for medical issues Assess your risk for future medical problems Encourage a healthy lifestyle Update vaccinations and other preventive care services Help you get to know your provider in case of an illness Information Even if you feel fine, you should still see your provider for regular checkups. These visits can help you avoid problems in the future. For example, the only way to find out if you have high blood pressure is to have it checked regularly. High blood sugar and high cholesterol level also may not have any symptoms in the early stages. Simple blood tests can check for these conditions. There are specific times when you should see your provider or receive specific health screenings. The [place] Preventive Services Task Force publishes a list of recommended screenings. Below are screening guidelines for men ages 40 to 64. BLOOD PRESSURE SCREENING Have your blood pressure checked at least once every year. Watch for blood pressure screenings in your area. Ask your provider if you can stop in to have your blood pressure checked. Ask your provider if you need your blood pressure checked more often if: You have diabetes, heart disease, kidney problems, or are overweight or have certain other health conditions You have a first-degree relative with high blood pressure You are Black Your blood pressure top number is from 120 to 129 mm Hg, or the bottom number is from 70 to 79 mm Hg If the top number is 130 mm Hg or greater or the bottom number is 80 mm Hg or greater, this is considered stage 1 hypertension. Schedule an appointment with your provider to learn how you can lower your blood pressure. Effects of age on blood pressure CHOLESTEROL SCREENING Cholesterol screening should begin at age 35 for men with no known risk factors for coronary heart disease. Repeat cholesterol screening should take place: Every 5 years for men with normal cholesterol levels More often if changes occur in lifestyle (including weight gain and diet) More often if you have diabetes, heart disease, kidney problems, or certain other conditions COLORECTAL CANCER SCREENING If you are under age 45, talk to your provider about getting screened. You may need to be screened if you have a strong family history of colon cancer or polyps. Screening may also be considered if you have risk factors such as a history of inflammatory bowel disease or polyps. If you are age 45 to 75, you should be screened for colorectal cancer. There are several screening tests available: A stool-based fecal occult blood (gFOBT) or fecal immunochemical test (FIT) every year A stool sDNA test every 1 to 3 years Flexible sigmoidoscopy every 5 years or every 10 years with stool testing FIT done every year CT colonography (virtual colonoscopy) every 5 years Colonoscopy every 10 years You may need a colonoscopy more often if you have risk factors for colorectal cancer, such as: Ulcerative colitis A personal or family history of colorectal cancer A history of growths in your colon called adenomatous polyps DENTAL EXAM Go to the dentist once or twice every year for an exam and cleaning. Your dentist will evaluate if you have a need for more frequent visits. DIABETES SCREENING All adults who do not have risk factors for diabetes should be screened starting at age 35 and repeated every 3 years. If you have other risk factors for diabetes, such as a first degree relative with diabetes, overweight or obesity, high blood pressure, prediabetes, or a history of heart disease, you may be tested more often. If you are overweight and have other risk factors, such as high blood pressure and are planning to become , screening is recommended. EYE EXAM Have an eye exam every 2 to 4 years ages 40 to 54 and every 1 to 3 years ages 55 to 64. Your provider may recommend more frequent eye exams if you have vision problems or glaucoma risk. Have an eye exam that includes an examination of your retina (back of your eye) at least every year if you have diabetes. IMMUNIZATIONS Commonly needed vaccines include: Flu shot: get one every year COVID-19 vaccine: ask your provider what is best for you Tetanus-diphtheria and acellular pertussis (Tdap) vaccine: have as one of your tetanus-diphtheria vaccines if you did not receive it as an adolescent Tetanus-diphtheria: have a booster (or Tdap) every 10 years Varicella vaccine: receive 2 doses if you never had chickenpox or the varicella vaccine and were born in 1980 or after Hepatitis B vaccine: receive 2, 3, or 4 doses, depending on your exact circumstances, if you did not receive these as a child or adolescent, until age 59 Shingles (herpes zoster) vaccine: at or after age 50 Ask your provider if you should receive other immunizations, especially if you have certain medical conditions, such as diabetes or are at increased risk for some diseases such as pneumonia. INFECTIOUS DISEASE SCREENING Screening for hepatitis C: all adults ages 18 to 79 should get a one-time test for hepatitis C. Screening for human immunodeficiency virus (HIV): all people ages 15 to 65 should get a one-time test for HIV. Depending on your lifestyle and medical history, you may need to be screened for infections such as syphilis, chlamydia, and other infections. LUNG CANCER SCREENING You should have an annual screening for lung cancer with low-dose computed tomography (LDCT) if: You are age 50 to 80 years AND You have a 20 pack-year smoking history AND You currently smoke or have quit within the past 15 years OSTEOPOROSIS SCREENING If you are age 50 to 64 and have risk factors for osteoporosis, you should discuss screening with your provider. Risk factors can include long-term steroid use, low body weight, smoking, heavy alcohol use, having a fracture after age 50, or a family history of hip fracture or osteoporosis. Osteoporosis PHYSICAL EXAM All adults should visit their provider from time to time, even if they are healthy. The purpose of these visits is to: Screen for diseases Assess risk of future medical problems Encourage a healthy lifestyle Update vaccinations and other preventive care services Maintain a relationship with a provider in case of an illness Your height, weight, and body mass index (BMI) should be checked at every exam. During your exam, your provider may ask you about: Depression and anxiety Diet and exercise Alcohol and tobacco use Safety, such as use of seat belts and smoke detectors Your medicines and risk for interactions PROSTATE CANCER SCREENING If you're 55 through 69 years old, before having the test, talk to your provider about the pros and cons of having a PSA test. Ask about: Whether screening decreases your chance of dying from prostate cancer. Whether there is any harm from prostate cancer screening, such as side effects from testing or overtreatment of cancer when discovered. Whether you have a higher risk of prostate cancer than others. If you are age 55 or younger, screening is not generally recommended. You should talk with your provider about if you have a higher risk for prostate cancer. Risk factors include: Having a family history of prostate cancer (especially a brother or father) Being If you choose to be tested, the PSA blood test is repeated over time (yearly or less often), though the best frequency is not known. Prostate examinations are no longer routinely done on men with no symptoms. Prostate cancer SKIN EXAM Your provider may check your skin for signs of skin cancer, especially if you're at high risk. People at high risk include those who have had skin cancer before, have close relatives with skin cancer, or have a weakened immune system. TESTICULAR EXAM The [place] Preventive Services Task Force (USPSTF) now recommends against performing testicular self-exams. Doing testicular self-exams has been shown to have little to no benefit.
[2025-03-18 09:29] VITALS: BP 132/74; PULSE 105; RESP 13; TEMP 36.4; O2SAT 99; BMI 24.5
[2025-03-18 09:56] VITALS: PULSE 88
--- OUTSIDE RECORDS SUMMARY | 2025-03-18 10:15 | XMS_ITS | Clinical Summary ---
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 2 each 3 01/09/20 24 Active hydrOXYzine HCL (ATARAX) 10 MG tablet Take 10 mg by mouth as needed. 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 90 tablet 2 11/20/19 25 Active Active Problems Problem Noted Date Diagnosed Date Hyperlipidemia LDL goal <70 11/19/2024 Assessment & Plan (11/19/2024 12:53 PM EDT): Based on new guidelines LDL should be less than 70 mg and his LDL is 141 mg/dL he is 33 years old so he should start using statins. I will prescribe rosuvastatin 20 mg to start out with and repeat lipid panel in 3 months time. He can also work on his diet and by decreasing fried foods, eggs, beef intake etc. Type 1 diabetes mellitus with hyperglycemia 08/2023 Assessment & Plan (11/19/2024 12:52 PM EDT): We calculated carbohydrate ratio of 6:8 and sensitivity 25-32. So what he is going to do is decrease the carbohydrate ratio to 6 for breakfast and keep the carbohydrate ratio 4 9 for lunch and dinner. He is not going to change the sensitivity because we do not want to change too many factors at the same time. His biggest concern is the hypoglycemia at lunchtime. So he would like to decrease his Basaglar in the morning. He is currently using 12 so he will decrease it to 9 units and he is going to continue Basaglar at 26 units in the evening. That way he expects to have less hypoglycemia at lunch. He feels that his dinner glucose levels may increase but as it is he finds that he has to split the bolus doses and maybe he will have to do this in the evening. As for breakfast we have already decreased his carbohydrate ratio and hopefully that would take care of the hyperglycemia. He is drinking coffee in the morning which increases his insulin resistance. So potentially he may not have to double the dose of prandial insulin for breakfast. Today we also discussed the possibility of using Tresiba or Toujeo instead of Lantus which is a much flatter insulin with more steady state. It does not look like Toujeo is covered under his plan possibly Tresiba is covered but we may have to do prior to rotation and this is another option. I did inquire about insulin pump therapy and he is not interested. Assessment & Plan (04/16/2024 9:51 AM EST): Uncontrolled. He has very good hemoglobin A1c of 6.5% but his target in range is only 51%. This needs to be at 70%. He is having hyperglycemia throughout the day now. He states he is less active during the day because of the cold weather he is exercising less no longer having hypoglycemia. His bolus ratio is 44% basal ratio 56% and this needs to be 60% bolus 40% basal or something close to it. So he needs more prandial insulin for meals because the current correction scale that he is using is not working. He is using a sensitivity of 50 Target blood glucose which is quite tight at 100 mg/dL and carbohydrate ratio of time. I have asked him to decrease the carbohydrate ratio to 9, decreased sensitivity to 37 and increase to target blood glucose 220 mg/dL. He now has an Remberto for bolus correction administration. This will be easier to calculate with odd numbers. Will Dimple make any changes to the basal insulin at this moment. If he finds that he is having hypoglycemia during the day then he should decrease the basal insulin slightly in the morning. The plan will be to try to balance insulin better. He needs more bolus insulin/type I diabetic. However at nighttime is a problem because he is sedentary he is not burning off as much calories and glucose levels tends to increase. I am hoping that if he has improved glycemic control in the evening glycemic control overnight will improve. Again we discussed the possibility of changing the evening Basaglar to NPH. However we do want a make too many changes. Return for follow-up in 3 months advised to obtain lab work fasting if he can go to a [facility] facility so I can see the results it would be helpful. I requested hemoglobin A1c for the follow-up visit in 3 months as well. Type 1 diabetes mellitus wit h mild nonproliferative retinopathy of both eyes without macular edema 01/09/2024 Assessment & Plan (07/30/2024 10:01 AM EDT): Fair control. His hemoglobin A1c is 6.3% which is excellent. I still do not have his CBCs are noted to hemoglobin hematocrit level is in the normal reference range I can say that the hemoglobin A1c is accurate. However, based on his CGM he is at 67% at target range. Which is a big improvement from his last visit but he needs to be at 70% minimal in order to prevent diabetic retinopathy. In general I think he is done quite well since the last visit with the changes. Again he felt that he was not getting enough insulin that he was becoming more insulin resistant because he required more bolus insulin despite the fact that we had already decreased his carbohydrate ratio and sensitivity which would be giving him more insulin. This may be true but I did notice that his glucose levels did decrease and his argument to this is that he was using more bolus insulin. Despite this he still basal heavy and he needs more bolus insulin in my opinion. The only problem with the more bolus insulin is the more insulin he gets during the day and evening the more likely his glucose will drop because he is using so much basal insulin. I have discussed the possibility of giving him NPH at nighttime instead of Basaglar and continuing Basaglar in the morning. Another option was to stop the basal insulin in the morning and just decrease the carbohydrate ratio and sensitivity in the evening. In the end we are not can make any changes he just wants to see how he responds to insulin administration at other body sites. Her return for follow-up in 3 months. Assessment & Plan (01/09/2024 12:22 PM EDT): Uncontrolled. He has good hemoglobin A1c of 6.7% but he has elevated glucose at night and hypoglycemia after 3 PM. Only 63% in range we need 70% in range in order to prevent the progression of diabetic retinopathy. He does not want an insulin pump which may help prevent the high glucose at nighttime. He is going to decrease his basal insulin in the morning and give himself more basal insulin at night which may help but is a 24-hour acting insulin even though Basaglar does not have very good steady state so it may help I do not think it is going to fully work hopefully it does. If it does not work he could potentially use regular insulin administration at night even if he is not eating. The danger with this is the potential for hypoglycemia. Another option would be to switch to NPH insulin that way the insulin is only acting for 12 hours and he can definitely increase his evening a lot more than what he needs to use during the day. During the day because he is so active and he is bolusing sometimes he can go low. Also tends to go low because of the overlapping of the Lantus. As stated in the HPI he is going to start using 14 units of Basaglar in the morning 22 units of Basaglar in the evening he is going to continue bolusing based on carbohydrate ratio of 10. But he can easily use sensitivity as well since he has the CGM. We can explore this at another time but presently he is not having postprandial hyperglycemia so I do not think it is a big issue. The issue now is preventing the highs overnight. Family History Medical History Relation Comments Alcohol abuse Father Migraines Mother Dementia Paternal Grandfather Relation Status Comments Father Alive Mother Alive Paternal Grandfather Social History Tobacco Use Types Packs/Day Years Used Date Smoking Tobacco: Never Smokeless Tobacco: Never Tobacco Cessation:Counseling Given: Not Answered Alcohol Use Standard Drinks/Week Comments Not Currently 0 (1 standard drink = 0.6 oz pur e alcohol) Education Answer Date Recorded Are you interested in more education? Not on marietta e 10/17/2023 Are you concerned about learning? Not on file 10/17/2023 No 10/17/2023 No 10/17/2023 Digital Access Answer Date Recorded No 10/17/2023 No 10/17/2023 Reliable internet access at home? Not on file 10/17/2023 Device with a working camera? Not on file Sex and Gender Information Value Date Recorded Sex Assigned at Not on file Legal Sex Male 9:03 PM EDT Gender Identity Not on file Sexual Orientation Not on file Last Filed Vital Signs Vital Sign Reading Time Taken Comments Blood Pressure 118/73 11/19/2024 11:56 AM EDT Pulse 75 11/19/2024 11:56 AM EDT Temperature - - Respiratory Rate - - Oxygen Saturation 98% 11/19/2024 11:56 AM EDT Inhaled Oxygen Concentration - - Weight 82.2 kg (181 lb 3.2 oz) 11/19/2024 11:56 AM EDT Height 185 cm (6' 0.84 ) 07/30/2024 9:18 AM EDT Body Mass Index 24.01 07/30/2024 9:18 AM EDT Plan of Treatment Upcoming Encounters Date Type Department Care Team (Late st Contact Info) Description 07/08/2025 12:10 PM EST Office Visit [facility] [address] [place] [address] [place] [address] Roberto Lawrence DO [address] [place] [id number] [email or web address] Health Maintenance Due Date Last Done Comments Adult Td,Tdap Booster 1989 DEPRESSION SCREENING 2001 HEPATITIS C SCREENING 12/28/2007 HIV ONE-TIME SCREENING (18-65 YEARS) 12/28/2007 PNEUMOCOCCAL VACCINES (0-49 years) (1 of 2 - PCV) 2008 DIABETIC EYE EXAM 01/09/2024 URINE MICROALBUMIN/CREATININE RATIO 01/09/2024 INFLUENZA VACCINE (#1) 2024 COVID-19 VACCINE ( - season) 2025 BLOOD PRESSURE 05/22/2025 11/19/2024 HEMOGLOBIN A1C 05/22/2025 11/19/2024, 07/06, 04/16/2024, Additional history exists SMOKING STATUS SCREENING (Once After 26 Yrs) Completed 07/30/2024 HEPATITIS A VACCINES Aged Out No long er eligible based on patient's age to complete this topic HIB VACCINES Aged Out No longer eligi ble based on patient's age to complete this topic MENINGOCOCCAL VACCINES (ACWY) Aged Out No longer eligible based on patient's age to complete this topic MENINGOCOCCAL VACCINES (B) Aged Out N o longer eligible based on patient's age to complete this topic Medical Devices Not on file Procedures Procedure Name Priority Date/Time Associated Diagnosis Comments POCT HEMOGLOBIN A1C Routine 11/19/2024 1:01 PM EDT Type 1 diabetes mellitus with hyperglycemia 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 from Last 3 Months or Most Recently Relevant to Health Maintenance Results * (ABNORMAL) POCT Hemoglobin A1c (11/19/2024 1:01 PM EDT) Hemoglobin A1c 6.1(A) 4.2 - 5.6 % Other 11/19/2024 1:0 1 PM EDT Roberto Lawrence DO LAB POCT ENTER/EDIT ORDERABLES F inal Result from Last 3 Months or Most Recently Relevant to Health Maintenance Insurance [employer] Age of [employer]AL[employer] Care Teams Wellness Trainer Relationship Specialty Start Date End Date Kathy Ibarra NP [address] [place] [address] [email or web address] PCP - General Nurse Practitioner 04/16/24 Additional Source Comments The information contained in this document represents components of the legal health record. It is not the complete legal health record.[facility]
== END 2025-03-18 10:01 | disposition home or self-care (01) ==
LOC: HO.HMCFM 09:22
PROVIDERS: PCP Nurse Practitioner Family; Visit Provider Nurse Practitioner Family
DX: Z00.01 Encounter for general adult medical examination with abnormal findings (principal); E10.8 Type 1 diabetes mellitus with unspecified complications; E10.3293 Type 1 diabetes mellitus with mild nonproliferative diabetic retinopathy without macular edema, bilateral; Z23 Encounter for immunization; E10.69 Type 1 diabetes mellitus with other specified complication; E78.5 Hyperlipidemia, unspecified; F41.1 Generalized anxiety disorder; L98.9 Disorder of the skin and subcutaneous tissue, unspecified

== ENCOUNTER → 2025-03-18 09:21 | Outpatient (BNVA) | payer OTHER, SELFPAY | PROVIDERS: PCP Nurse Practitioner Family; Visit Provider Nurse Practitioner Family | DX: Z00.01 Encounter for general adult medical examination with abnormal findings (principal); E78.5 Hyperlipidemia, unspecified; R05.3 Chronic cough; E10.3293 Type 1 diabetes mellitus with mild nonproliferative diabetic retinopathy without macular edema, bilateral; E10.69 Type 1 diabetes mellitus with other specified complication; F41.1 Generalized anxiety disorder; L98.9 Disorder of the skin and subcutaneous tissue, unspecified; Z79.4 Long term (current) use of insulin; Z23 Encounter for immunization | CPT/HCPCS: 90471; 90656; 96127 ==